=== PATIENT | female | born 1940 | race Caucasian/White ===

== ENCOUNTER 2018-09-27 17:51 | Inpatient (IN) | payer MEDICARE, MEDICAID ==
--- NOTE | 2018-09-27 18:30 | ED Physician Chart ---
ED Chief Complaint/HPI - Patient Information Date Seen:: 09/27/18 Time Seen:: 18:05 Chief Complaint:: Delusions, refusing meds History of Present Illness:: Delusions, refusing meds Allergies:: Allergies Allergy/AdvReac Type Severity Reaction Status Date / Time No Known Allergies Allergy Verified 09/27/18 18:05 Vitals:: Vital Signs - 8 hr 09/27/18 18:05 Temp 98.3 F HR 78 RR 21 BP 122/62 O2 Sat % 100 Historian:: Patient Review:: Nurse's Note Reviewed, Transfer documents Reviewed ED Review of Systems - Review of Systems General/Constitutional: No fever, No chills, No weight loss, No weakness, No diaphoresis, No edema, No loss of appetite Skin: No skin lesions, No rash, No bruising Head: No headache, No light-headedness Eyes: No loss of vision, No pain, No diplopia ENT: No earache, No nasal drainage, No sore throat, No tinnitus Neck: No neck pain, No swelling, No thyromegaly, No stiffness, No mass noted Cardio Vascular: No chest pain, No palpitations, No PND, No orthopnea, No edema Pulmonary: No SOB, No cough, No sputum, No wheezing GI: No nausea, No vomiting, No diarrhea, No pain, No melena, No hematochezia, No constipation, No hematemesis G/U: No dysuria, No frequency, No hematuria Musculoskeletal: No bone or joint pain, No back pain, No muscle pain Endocrine: No polyuria, No polydipsia Psychiatric: Prior psych history, No depression, No anxiety, No suicidal ideation, No homicidal ideation, No auditory hallucination, No visual hallucination Hematopoietic: No bruising, No lymphadenopathy Allergic/Immuno: No urticaria, No angioedema Neurological: No syncope, No focal symptoms, No weakness, No paresthesia, No headache, No seizure, No dizziness, No confusion, No vertigo ED Past Medical History - Past Medical History Obtainable: No Past Medical History: CAD, CVA/TIA Psychiatricy History: Schizophrenia, Other (anxiety; schizoaffective) Family Medical History - Family Member Mother History Unknown: Yes ED Physical Exam - Physical Examination General/Constitutional: Awake, Well-developed, well-nourished, Alert, No distress, Non-toxic appearing, Ambulatory Other Gen/Cons comments:: 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 Head: Atraumatic Eyes: Lids, conjuctiva normal, PERRL, EOMI Other Skin comments:: Large left lower lip nodular ulcerative basal cell carcinoma. ENMT: External ears, nose nl Neck: Nontender, No nuchal rigidity, No stridor Respiratory: Nl effort/Exclusion, Clear to Auscultation, No Wheeze/Rhonchi/Rales Cardio Vascular: RRR, No murmur, gallop, rubs, NL S1 S2 GI: No tenderness/rebounding/guarding, No organomegaly, No hernia, Normal BS's, Nondistended, No mass/bruits, No McBurney tenderness : No CVA tenderness Other Extremities comments:: large old left lower leg bruise. no tenderness. FROM. NV intact. Neuro/Psych: Alert/oriented, Normal sensory exam, Normal motor strength Other Neuro/Psych comments:: psychosis with delusions of being an FBI agent. ED Assessment - Assessment General Assessment: PATIENT IS MEDICALLY CLEARED FOR THE GEROPSYCH UNIT. ALL THAT SHE NEEDS TO BE CHECKED FOR IS A URINARY TRACT INFECTION. SHE REFUSED TO GIVE US A URINE IN THE ER. ED Septic Shock - . Is Septic Shock (SBP<90, OR Lactate>4 mmol\L) present?: No - <6hrs of presentation: Vital Signs: Vital Signs - 8 hr 09/27/ 18:05 Temp 98.3 F HR 78 RR 21 BP 122/62 O2 Sat % 100 ED Reassessment (Disposition) - Reassessment Reassessment Condition:: Unchanged - Diagnosis Diagnosis:: Psychosis Delusions Large left lower lip nodular ulcerative basal cell carcinoma. PATIENT IS MEDICALLY CLEARED FOR THE GEROPSYCH UNIT. ALL THAT SHE NEEDS TO BE CHECKED FOR IS A URINARY TRACT INFECTION. SHE REFUSED TO GIVE US A URINE IN THE ER - Patient Disposition Discharge/Transfer:: Acute Care w/in this hosp Admitted to:: [facility] Condition at Disposition:: Stable, Unchanged
[2018-09-27 18:48] LABS: % BASOPHILS 0.9 % (0.0-2.0); % EOSINOPHILS 2.1 % (0.0-5.0); % LYMPHOCYTES 23.9 % (20.0-50.0); % MONOCYTES 6.1 % (2.0-10.0); BASOPHILE ABSOLUTE 0.1 Th/cumm (0-0.2); EOSINOPHILE ABSOLUTE 0.1 Th/cmm (0.1-0.4); HEMATOCRIT 42.8 % (41.0-60); HEMOGLOBIN 14.2 gm/dL (12-16); LYMPHOCYTE ABSOLUTE 1.3 Th/cmm (1.5-3.0); MEAN CELL VOLUME 88.8 fl (81-100); MEAN CORPUSCULAR HEMOGLOBIN 29.3 pg (27.0-31.0); MEAN CORPUSCULAR HGB CONC 33.1 pg (28.0-36.0); MEAN PLATELET VOLUME 8.7 fl; MONOCYTE ABSOLUTE 0.3 Th/cmm (0.3-1.0); NEUTROPHILE ABSOLUTE 3.8 Th/cmm (1.8-8.0); PLATELET COUNT 212 Th/cmm (150-400); RED BLOOD COUNT 4.83 Mil/cmm (3.80-5.20); RED CELL DISTRIBUTION WIDTH 12.8 % (11.5-20.0); WHITE BLOOD COUNT 5.6 Th/cmm (4.8-10.8)
[2018-09-27 19:05] LABS: ALB/GLOB RATIO 1.6 (1.0-1.8); ALBUMIN 3.9 gm/dL (3.7-5.3); ALKALINE PHOSPHATASE 82 U/L (34-104); ANION GAP 13.1 (7.0-16.0); BILIRUBIN,TOTAL 0.9 mg/dL (0.3-1.0); BUN - UREA NITROGEN 17 mg/dL (7-25); CALCIUM SERUM 9.7 mg/dL (8.6-10.3); CARBON DIOXIDE 24.7 mEq/L (21.0-31.0); CHLORIDE 104 mEq/L (98-107); CREATININE - SERUM 0.9 mg/dL (0.6-1.2); GLUCOSE 225 mg/dL (70-105); PHOSPHOROUS 3.3 mg/dL (2.5-5.0); POTASSIUM SERUM 3.8 mEq/L (3.5-5.1); SGOT 22 U/L (13-39); SGPT/ALT 15 U/L (7-52); SODIUM SERUM 138 mEq/L (136-145); TOTAL PROTEIN,SERUM 6.4 gm/dL (6.0-8.3)
[2018-09-27 22:47] VITALS: BP 122/76
[2018-09-27] MEDS ORDERED: Maalox 30 mL Cup PO PRN (22:48)
[2018-09-27] MEDS ORDERED: Magnesium Hydroxide (MOM) 30 mL UDC PO PRN (22:48)
[2018-09-28] MEDS: Levothyroxine 0.05 Mg Tab PO SCH (07:04)
[2018-09-28 07:36] LABS: CHOLESTEROL 166 mg/dL (<200); HDL -HIGH DENSITY LIPOPROTEIN 72 mg/dL (23-92); TRIGLYCERIDES 78 mg/dL (<150)
--- NOTE | 2018-09-28 07:52 | History and Physical ---
History of Present Illness - HPI Chief Complaint: psychosis HPI: 78 y/o female who was transferred from [facility] to [facility] ER for a change in her behavior, increased delusion due to not taking her medications. Patient had routine labwork done in the ER which revealed the following ... WBC 5.6 H/h 14.2/42.8 platelets 212 Na 138 K 3.8 BUN/Cr 17/0.9 glu 225 Patient was subsequently admitted to [facility] for further evaluation and treatment. Vital Signs: Last Vital Signs Temp 97.9 F 09/28/18 06:39 Pulse 78 09/28/18 06:39 Resp 20 09/28/18 06:39 BP 112/73 09/28/18 06:39 Pulse Ox 98 09/28/18 06:39 Past Medical History Cardiovascular: Report: CAD Pulmonary: Report: No Pertinent Hx UPPER TRIMMER: Report: CVA, TIA GI: Report: No Pertinent Hx Psych: Report: Anxiety, Schizophrenia Musculoskeletal: Report: No Pertinent Hx Rheumatologic: Report: No pertinent Hx Infectious Disease: Report: No Pertinent Hx Renal/: Report: No Pertinent Hx Endocrine: Report: No Pertinent Hx Dermatology: Report: No Pertinent Hx - Past Surgical History Past Surgical History: No pertinent Hx Family Medical History - Family Member Mother History Unknown: Yes Social History Smoke: No Alcohol: None Drugs: None Lives: [facility] - Medications Home Medications: Home Medication Medication Instructions Recorded Type Aspirin EC [Ecotrin] 81 mg PO DAILY 09/27/18 History Haloperidol Decanoate [Haldol Dec] 25 mg IM [id number] 09/27/18 History Levothyroxine [Synthroid] 0.05 mg PO QDAC 09/27/18 History Mirtazapine [Remeron] 15 mg PO HS 09/27/18 History Oxcarbazepine [Trileptal] 150 mg PO BID 09/27/18 History - Allergies Allergies/Adverse Reactions: Allergies Allergy/AdvReac Type Severity Reaction Status Date / Time No Known Allergies Allergy Verified 09/27/18 18:05 Review of Systems - Review of Systems Constitutional: Report: No Significant Eyes: Report: No Significant ENT: Report: No Significant Respiratory: Report: No Significant Cardiovascular: Report: No Significant Gastrointestinal: Report: No Significant Genitourinary: Report: No Significant Musculoskeletal: Report: No Significant Skin: Report: No Significant Neurological: Report: Confusion Physical Exam - Physical Exam HEENT: Report: Ears Nose Throat within normal limits, Pharnyx within normal limits Neck: Report: Within normal limits Cardiovascular Systems: Report: +s1/s2 noted, Regular, Rate and Rhythm Respiratory: Report: Breath Sounds are within normal limits Abdomen: Report: Non-tender to palpation Back: Report: Inspection of back is within normal limits. Extremities: Report: Non-tender to palpation. Skin: Report: Color of skin is within normal limits - Lab Results All Lab Results last 24 hours: Laboratory Results - last 24 hr 09/27/18 09/27/18 09/27/18 18:35 18:35 18:35 WBC 5.6 RBC 4.83 Hgb 14.2 Hct 42.8 MCV 88.8 MCH 29.3 MCHC Differential 33.1 RDW 12.8 Plt Count 212 MPV 8.7 Neutrophils % 67.0 Lymphocytes % 23.9 Monocytes % 6.1 Eosinophils % 2.1 Basophils % 0.9 Sodium 138 Potassium 3.8 Chloride 104 Carbon Dioxide 24.7 Anion Gap 13.1 BUN 17 Creatinine 0.9 Est GFR ( Amer) TNP Est GFR (Non-Af Amer) TNP BUN/Creatinine Ratio 18.9 Glucose 225 H Calcium 9.7 Phosphorus 3.3 Magnesium 2.0 Total Bilirubin 0.9 AST 22 ALT 15 Alkaline Phosphatase 82 Total Protein 6.4 Albumin 3.9 Globulin 2.5 Albumin/Globulin Ratio 1.6 Triglycerides Cholesterol LDL Cholesterol Direct HDL Cholesterol TSH 2.93 09/27/18 18:35 WBC RBC Hgb Hct MCV MCH MCHC Differential RDW Plt Count MPV Neutrophils % Lymphocytes % Monocytes % Eosinophils % Basophils % Sodium Potassium Chloride Carbon Dioxide Anion Gap BUN Creatinine Est GFR ( Amer) Est GFR (Non-Af Amer) BUN/Creatinine Ratio Glucose Calcium Phosphorus Magnesium Total Bilirubin AST ALT Alkaline Phosphatase Total Protein Albumin Globulin Albumin/Globulin Ratio Triglycerides 78 Cholesterol 166 LDL Cholesterol Direct 85 HDL Cholesterol 72 TSH - Assessment Assessment: Current Active Problems Problem Status Onset DELUSIONAL THINKING AND POOR ORAL INTAKE Acute psychosis - Plan Plan: admit to [facility] continue current medications.
[2018-09-29] MEDS: Levothyroxine 0.05 Mg Tab PO SCH (06:31)
--- NOTE | 2018-09-29 06:49 | General Progress Note ---
Subjective - Review of Systems Service Date: 09/29/18 Subjective: Patient is awake, alert but confused. VS T97.0 P78 R20 BP 125/83 Objective - Results Result Diagrams: 09/27/18 18:35 09/27/18 18:35 Recent Labs: Laboratory Last Values WBC 5.6 Th/cmm (4.8-10.8) 09/27/18 18:35 RBC 4.83 Mil/cmm (3.80-5.20) 09/27/18 18:35 Hgb 14.2 gm/dL (12-16) 09/27/18 18:35 Hct 42.8 % (41.0-60) 09/27/18 18:35 MCV 88.8 fl (81-100) 09/27/18 18:35 MCH 29.3 pg (27.0-31.0) 09/27/18 18:35 MCHC Differential 33.1 pg (28.0-36.0) 09/27/18 18:35 RDW 12.8 % (11.5-20.0) 09/27/18 18:35 Plt Count 212 Th/cmm (150-400) 09/27/18 18:35 MPV 8.7 fl 09/27/18 18:35 Neutrophils % 67.0 % (40.0-80.0) 09/27/18 18:35 Lymphocytes % 23.9 % (20.0-50.0) 09/27/18 18:35 Monocytes % 6.1 % (2.0-10.0) 09/27/18 18:35 Eosinophils % 2.1 % (0.0-5.0) 09/27/18 18:35 Basophils % 0.9 % (0.0-2.0) 09/27/18 18:35 Sodium 138 mEq/L (136-145) 09/27/18 18:35 Potassium 3.8 mEq/L (3.5-5.1) 09/27/18 18:35 Chloride 104 mEq/L (98-107) 09/27/18 18:35 Carbon Dioxide 24.7 mEq/L (21.0-31.0) 09/27/18 18:35 Anion Gap 13.1 (7.0-16.0) 09/27/18 18:35 BUN 17 mg/dL (7-25) 09/27/18 18:35 Creatinine 0.9 mg/dL (0.6-1.2) 09/27/18 18:35 Est GFR ( Amer) TNP 09/27/18 18:35 Est GFR (Non-Af Amer) TNP 09/27/18 18:35 BUN/Creatinine Ratio 18.9 09/27/18 18:35 Glucose 225 mg/dL (70-105) H 09/27/18 18:35 Calcium 9.7 mg/dL (8.6-10.3) 09/27/18 18:35 Phosphorus 3.3 mg/dL (2.5-5.0) 09/27/18 18:35 Magnesium 2.0 mg/dL (1.9-2.7) 09/27/18 18:35 Total Bilirubin 0.9 mg/dL (0.3-1.0) 09/27/18 18:35 AST 22 U/L (13-39) 09/27/18 18:35 ALT 15 U/L (7-52) 09/27/18 18:35 Alkaline Phosphatase 82 U/L (34-104) 09/27/18 18:35 Total Protein 6.4 gm/dL (6.0-8.3) 09/27/18 18:35 Albumin 3.9 gm/dL (3.7-5.3) 09/27/18 18:35 Globulin 2.5 gm/dL 09/27/18 18:35 Albumin/Globulin Ratio 1.6 (1.0-1.8) 09/27/18 18:35 Triglycerides 78 mg/dL (<150) 09/27/18 18:35 Cholesterol 166 mg/dL (<200) 09/27/18 18:35 LDL Cholesterol Direct 85 mg/dL (75-193) 09/27/18 18:35 HDL Cholesterol 72 mg/dL (23-92) 09/27/18 18:35 TSH 2.93 uIU/ml (0.34-5.60) 09/27/18 18:35 - Physical Exam Vitals and I&O: Vital Signs Temp 97.0 F 09/29/18 06:24 Pulse 78 09/29/18 06:24 Resp 20 09/29/18 06:24 BP 125/83 09/29/18 06:24 Pulse Ox 95 12/25/18 06:24 Intake & Output 09/28/18 09/28/18 09/29/18 06:59 18:59 06:59 Intake Total 0 1200 240 Balance 0 1200 240 Weight (lbs) 46.266 kg Intake: Oral 0 1200 240 Other: # Voids 3 3 2 # Bowel Movements 0 1 Weight Source Bedscale Active Medications: Current Medications Acetaminophen (Tylenol) 650 mg PO Q4HR PRN PRN Reason: Mild Pain / Temp above 100 Stop: 11/26/18 22:47 Al Hydrox/Mg Hydrox/Simethicone (Maalox) 30 ml PO Q4HR PRN PRN Reason: GI DISTRESS Stop: 11/26/18 22:47 Aspirin (Ecotrin) 81 mg PO DAILY [facility] Stop: 11/27/18 08:59 Last Admin: 09/28/18 09:32 Dose: Not Given Haloperidol Decanoate (Haldol Dec) 25 mg IM [id number] [facility]; Protocol Stop: 11/28/18 08:59 Levothyroxine Sodium (Synthroid) 0.05 mg PO QDAC [facility] Stop: 11/27/18 07:29 Last Admin: 09/29/18 06:31 Dose: Not Given Lorazepam (Ativan) 0.5 mg PO Q4HR PRN; Protocol PRN Reason: Anxiety Stop: 10/27/18 22:47 Magnesium Hydroxide (Milk Of Magnesia) 30 ml PO HS PRN PRN Reason: Constipation Mirtazapine (Remeron) 15 mg PO HS [facility]; Protocol Stop: 11/27/18 20:59 Last Admin: 09/28/18 21:04 Dose: Not Given Oxcarbazepine (Trileptal) 150 mg PO BID [facility]; Protocol Stop: 11/27/18 08:59 Last Admin: 09/28/18 16:26 Dose: Not Given General: Alert, No acute distress HEENT: Atraumatic, PERRLA, EOMI Neck: Supple, no JVD Cardiovascular: Regular rate, Normal S1, Normal S2 Lungs: Clear to auscultation Abdomen: Bowel sounds Extremities: no Clubbing, no Cyanosis, no Edema Neurological: Normal gait Assessment/Plan - Problem List Patient Problems: All Active Problems DELUSIONAL THINKING AND POOR ORAL INTAKE (Acute) - Assessment Assessment: Current Active Problems Problem Status Onset DELUSIONAL THINKING AND POOR ORAL INTAKE Acute psychosis - Plan Plan: admit to [facility] continue current medications. Nutritional Asmnt/Malnutr-PDOC - Dietary Evaluation Malnutrition Findings (Please click <Entered> for more info): Nutritional Asmnt/Malnutrition Start: 09/28/18 15: 25 Text: Status: Complete Freq: Protocol: Document 09/28/18 15:25 LCHENG (Rec: 09/28/18 15:36 [email or web address]) Nutritional Asmnt/Malnutrition Patient General Information Nutritional Screening High Risk Consult Diagnosis psychosis Pertinent Medical Hx/Surgical Hx CAD, CVA/TIA Subjective Information Consult received for elevated glucose at admission. Glucose 225 noted. Per nurse note, pt has been refusing meals for 2 days before admitted. Per QUALITY ANALYST/TECHNICAL WRITER, pt ate well, 75% of meals. Current Diet Order/ Nutrition Support regular Pertinent Medications synthroid, remeron Pertinent Labs 09/27 glucose 225 Nutritional Hx/Data Height 1.68 m Height (Calculated Centimeters) 167.6 Current Weight (lbs) 46.266 kg Weight (Calculated Kilograms) 46.3 Weight (Calculated Grams) 22308.4 [place] Body Weight 130 Body Mass Index (BMI) 16.5 Weight Status Underweight GI Symptoms GI Symptoms None Last BM none noted Difficult in: None Skin Integrity/Comment: intact Current %PO Good (75-100%) Estimated Nutritional Goals BEE in Kcals: Using Current wt Calories/Kcals/Kg 30-35 Kcals Calculated 0847-9323 Protein: Using Current wt Protein g/k.2 Protein Calculated 55 Fluid: ml 1380-1610ml (1ml/kcal) Nutritional Problem 1. Problem Problem altered nutrition related labs Etiology hyperglycemia Signs/Symptoms: glucose 225 Intervention/Recommendation Comments 1. Continue with regular diet as ordered. If glucose continue elevated, consider adding CCHO 60gm diet restriction 2. Monitor PO intake, wt, labs and skin integrity 3. F/U as high risk in 2-3 days Expected Outcomes/Goals Expected Outcomes/Goals 1. PO intake to meet at least 75% of nutritional needs. 2. Wt stability, skin to remain intact, labs to approach WNL.
--- NOTE | 2018-09-29 18:05 | Psychiatric Evaluation ---
DATE OF SERVICE: 09/28/[address] Upton covering for Dr. Borrego and Dr. Fernández. REASON FOR HOSPITALIZATION: Psychotic and refusing medication. HISTORY OF PRESENT ILLNESS: She is a 78-year-old female brought in here for delusions, psychotic, and aggressive behavior. 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 She derails, is hyperverbal, disorganized. PAST PSYCHIATRIC HISTORY: Delusion and schizophrenia. ALLERGIES TO MEDICATIONS: NKDA. Vitals are stable. Medically cleared from the ER. FAMILY PSYCHIATRIC HISTORY: Noncontributory. SOCIAL HISTORY: Denies any illicit drug use. Denies any abuse. LEGAL HISTORY: Denied. MEDICATIONS: Include aspirin, haloperidol 25 mg p.o. q. 2 weeks, mirtazapine 15 mg, also Trileptal at 150 mg p.o. b.i.d., and levothyroxine. MEDICAL PROBLEMS: Include hypothyroidism, status post UTI. MENTAL STATUS EXAMINATION: She is in her room, delusional, disorganized, believing there is a conspiracy with the government and the FBI agent and also she is royalty of the [employer], responding. ASSESSMENT AND PLAN: A 78-year-old female who presents psychotic, disorganized, and intermittently compliant with medication. She is currently on Haldol Deaconate. Recommend to continue obtaining more collateral baseline information. In the meantime, we will continue with the Haldol Decanoate and we will add a low dose of Seroquel to target the patient's ongoing psychotic symptoms. ESTIMATED LENGTH OF STAY: Between 5-10 days. DISCHARGE CRITERIA: Demonstrate euthymic mood, no suicidal or homicidal ideation, and good safe disposition plan with good psychiatric followup. PRIMARY DIAGNOSIS: Schizophrenia. SECONDARY DIAGNOSIS: None. MEDICAL DIAGNOSES: Hypothyroidism and urinary tract infection. JOB# [id number]
--- NOTE | 2018-09-29 23:18 | Progress Notes ---
DATE: 09/29/2018 SUBJECTIVE: Staff was spoken to. The patient is interviewed. Mood is noted to be depressed. Affect is constricted. Insight and judgment noted to be still impaired. Impulse control is very poor. Coping skills are noted to be poor. The patient is grossly psychotic. The patient has to be given a dose of the Haldol Decanoate on 09/29/2018. The patient has been impulsive and has been currently on oxcarbazepine and mirtazapine. No side effects to the medications are noted. The patient's sleep and appetite at this time are noted to be very poor. ASSESSMENT: The patient is still psychotic and impulsive. PLAN: To continue the patient with the supportive therapy, encouraged the patient to verbalize the concerns rather than to act out. JOB# [id number]
[2018-09-30] MEDS: Levothyroxine 0.05 Mg Tab PO SCH (06:59)
--- NOTE | 2018-09-30 07:10 | General Progress Note ---
Subjective - Review of Systems Service Date: 09/30/18 Subjective: Patient is awake, alert but confused. VS T97.9 P79 R18 BP 138/69 Objective - Results Result Diagrams: 09/27/18 18:35 09/27/18 18:35 Recent Labs: Laboratory Last Values WBC 5.6 Th/cmm (4.8-10.8) 09/27/18 18:35 RBC 4.83 Mil/cmm (3.80-5.20) 09/27/18 18:35 Hgb 14.2 gm/dL (12-16) 09/27/18 18:35 Hct 42.8 % (41.0-60) 09/27/18 18:35 MCV 88.8 fl (81-100) 09/27/18 18:35 MCH 29.3 pg (27.0-31.0) 09/27/18 18:35 MCHC Differential 33.1 pg (28.0-36.0) 09/27/18 18:35 RDW 12.8 % (11.5-20.0) 09/27/18 18:35 Plt Count 212 Th/cmm (150-400) 09/27/18 18:35 MPV 8.7 fl 09/27/18 18:35 Neutrophils % 67.0 % (40.0-80.0) 09/27/18 18:35 Lymphocytes % 23.9 % (20.0-50.0) 09/27/18 18:35 Monocytes % 6.1 % (2.0-10.0) 09/27/18 18:35 Eosinophils % 2.1 % (0.0-5.0) 09/27/18 18:35 Basophils % 0.9 % (0.0-2.0) 09/27/18 18:35 Sodium 138 mEq/L (136-145) 09/27/18 18:35 Potassium 3.8 mEq/L (3.5-5.1) 09/27/18 18:35 Chloride 104 mEq/L (98-107) 09/27/18 18:35 Carbon Dioxide 24.7 mEq/L (21.0-31.0) 09/27/18 18:35 Anion Gap 13.1 (7.0-16.0) 09/27/18 18:35 BUN 17 mg/dL (7-25) 09/27/18 18:35 Creatinine 0.9 mg/dL (0.6-1.2) 09/27/18 18:35 Est GFR ( Amer) TNP 09/27/18 18:35 Est GFR (Non-Af Amer) TNP 09/27/18 18:35 BUN/Creatinine Ratio 18.9 09/27/18 18:35 Glucose 225 mg/dL (70-105) H 09/27/18 18:35 Calcium 9.7 mg/dL (8.6-10.3) 09/27/18 18:35 Phosphorus 3.3 mg/dL (2.5-5.0) 09/27/18 18:35 Magnesium 2.0 mg/dL (1.9-2.7) 09/27/18 18:35 Total Bilirubin 0.9 mg/dL (0.3-1.0) 09/27/18 18:35 AST 22 U/L (13-39) 09/27/18 18:35 ALT 15 U/L (7-52) 09/27/18 18:35 Alkaline Phosphatase 82 U/L (34-104) 09/27/18 18:35 Total Protein 6.4 gm/dL (6.0-8.3) 09/27/18 18:35 Albumin 3.9 gm/dL (3.7-5.3) 09/27/18 18:35 Globulin 2.5 gm/dL 09/27/18 18:35 Albumin/Globulin Ratio 1.6 (1.0-1.8) 09/27/18 18:35 Triglycerides 78 mg/dL (<150) 09/27/18 18:35 Cholesterol 166 mg/dL (<200) 09/27/18 18:35 LDL Cholesterol Direct 85 mg/dL (75-193) 09/27/18 18:35 HDL Cholesterol 72 mg/dL (23-92) 09/27/18 18:35 TSH 2.93 uIU/ml (0.34-5.60) 09/27/18 18:35 - Physical Exam Vitals and I&O: Vital Signs Temp 97.9 F 09/30/18 05:19 Pulse 79 09/30/18 05:19 Resp 18 09/30/18 05:19 BP 138/69 09/30/18 05:19 Pulse Ox 98 12/26/18 05:19 Intake & Output 09/29/18 09/30/18 09/30/18 18:59 06:59 18:59 Intake Total 480 Balance 480 Intake: Oral 480 Other: # Voids 2 2 # Bowel Movements 1 Active Medications: Current Medications Acetaminophen (Tylenol) 650 mg PO Q4HR PRN PRN Reason: Mild Pain / Temp above 100 Stop: 11/26/18 22:47 Al Hydrox/Mg Hydrox/Simethicone (Maalox) 30 ml PO Q4HR PRN PRN Reason: GI DISTRESS Stop: 11/26/18 22:47 Aspirin (Ecotrin) 81 mg PO DAILY [facility] Stop: 11/27/18 08:59 Last Admin: 09/29/18 08:36 Dose: 81 mg Haloperidol Decanoate (Haldol Dec) 25 mg IM [id number] [facility]; Protocol Stop: 11/28/18 08:59 Last Admin: 09/29/18 08:36 Dose: 25 mg Levothyroxine Sodium (Synthroid) 0.05 mg PO QDAC [facility] Stop: 11/27/18 07:29 Last Admin: 09/30/18 06:59 Dose: Not Given Lorazepam (Ativan) 0.5 mg PO Q4HR PRN; Protocol PRN Reason: Anxiety Stop: 10/27/18 22:47 Magnesium Hydroxide (Milk Of Magnesia) 30 ml PO HS PRN PRN Reason: Constipation Mirtazapine (Remeron) 15 mg PO HS [facility]; Protocol Stop: 11/27/18 20:59 Last Admin: 09/29/18 20:41 Dose: Not Given Oxcarbazepine (Trileptal) 150 mg PO BID [facility]; Protocol Stop: 11/27/18 08:59 Last Admin: 09/29/18 16:35 Dose: 150 mg General: Alert, No acute distress HEENT: Atraumatic, PERRLA, EOMI Neck: Supple, no JVD Cardiovascular: Regular rate, Normal S1, Normal S2 Lungs: Clear to auscultation Abdomen: Bowel sounds Extremities: no Clubbing, no Cyanosis, no Edema Neurological: Normal gait Assessment/Plan - Problem List Patient Problems: All Active Problems DELUSIONAL THINKING AND POOR ORAL INTAKE (Acute) - Assessment Assessment: Current Active Problems Problem Status Onset DELUSIONAL THINKING AND POOR ORAL INTAKE Acute psychosis - Plan Plan: admit to [facility] continue current medications. Nutritional Asmnt/Malnutr-PDOC - Dietary Evaluation Malnutrition Findings (Please click <Entered> for more info): Nutritional Asmnt/Malnutrition Start: 09/28/18 15: 25 Text: Status: Complete Freq: Protocol: Document 09/28/18 15:25 LCHENG (Rec: 09/28/18 15:36 [email or web address]) Nutritional Asmnt/Malnutrition Patient General Information Nutritional Screening High Risk Consult Diagnosis psychosis Pertinent Medical Hx/Surgical Hx CAD, CVA/TIA Subjective Information Consult received for elevated glucose at admission. Glucose 225 noted. Per nurse note, pt has been refusing meals for 2 days before admitted. Per VERIFYING MACHINE OPERATOR, pt ate well, 75% of meals. Current Diet Order/ Nutrition Support regular Pertinent Medications synthroid, remeron Pertinent Labs 09/27 glucose 225 Nutritional Hx/Data Height 1.68 m Height (Calculated Centimeters) 167.6 Current Weight (lbs) 46.266 kg Weight (Calculated Kilograms) 46.3 Weight (Calculated Grams) 03018.4 [place] Body Weight 130 Body Mass Index (BMI) 16.5 Weight Status Underweight GI Symptoms GI Symptoms None Last BM none noted Difficult in: None Skin Integrity/Comment: intact Current %PO Good (75-100%) Estimated Nutritional Goals BEE in Kcals: Using Current wt Calories/Kcals/Kg 30-35 Kcals Calculated 1304-6796 Protein: Using Current wt Protein g/k.2 Protein Calculated 55 Fluid: ml 1380-1610ml (1ml/kcal) Nutritional Problem 1. Problem Problem altered nutrition related labs Etiology hyperglycemia Signs/Symptoms: glucose 225 Intervention/Recommendation Comments 1. Continue with regular diet as ordered. If glucose continue elevated, consider adding CCHO 60gm diet restriction 2. Monitor PO intake, wt, labs and skin integrity 3. F/U as high risk in 2-3 days Expected Outcomes/Goals Expected Outcomes/Goals 1. PO intake to meet at least 75% of nutritional needs. 2. Wt stability, skin to remain intact, labs to approach WNL.
--- NOTE | 2018-09-30 21:22 | Progress Notes ---
DATE: 09/30/2018 SUBJECTIVE: Staff was spoken to. The patient is interviewed. Chart is reviewed. The patient continues to be irritable and angry. The patient continues to be very paranoid. The patient is stating that we are trying to poison her. The patient has been reluctant to comply with the medications. ASSESSMENT: The patient is still grossly psychotic. PLAN: To continue the patient with the supportive therapy, encouraged the patient to verbalize the concerns rather than to act out. Currently, the patient is on ____ twice a day with Trileptal and mirtazapine is given at 50 mg at bedtime and the Haldol is being given at 25 mg IM every 2 weeks. JOB# [id number]
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
[2018-10-01] MEDS: Levothyroxine 0.05 Mg Tab PO SCH (06:50)
--- NOTE | 2018-10-01 07:14 | General Progress Note ---
Subjective - Review of Systems Service Date: 10/01/18 Subjective: Patient is awake, alert but confused. VS T97.2 P71 R20 BP 146/55 Objective - Results Result Diagrams: 09/27/18 18:35 09/27/18 18:35 Recent Labs: Laboratory Last Values WBC 5.6 Th/cmm (4.8-10.8) 09/27/18 18:35 RBC 4.83 Mil/cmm (3.80-5.20) 09/27/18 18:35 Hgb 14.2 gm/dL (12-16) 09/27/18 18:35 Hct 42.8 % (41.0-60) 09/27/18 18:35 MCV 88.8 fl (81-100) 09/27/18 18:35 MCH 29.3 pg (27.0-31.0) 09/27/18 18:35 MCHC Differential 33.1 pg (28.0-36.0) 09/27/18 18:35 RDW 12.8 % (11.5-20.0) 09/27/18 18:35 Plt Count 212 Th/cmm (150-400) 09/27/18 18:35 MPV 8.7 fl 09/27/18 18:35 Neutrophils % 67.0 % (40.0-80.0) 09/27/18 18:35 Lymphocytes % 23.9 % (20.0-50.0) 09/27/18 18:35 Monocytes % 6.1 % (2.0-10.0) 09/27/18 18:35 Eosinophils % 2.1 % (0.0-5.0) 09/27/18 18:35 Basophils % 0.9 % (0.0-2.0) 09/27/18 18:35 Sodium 138 mEq/L (136-145) 09/27/18 18:35 Potassium 3.8 mEq/L (3.5-5.1) 09/27/18 18:35 Chloride 104 mEq/L (98-107) 09/27/18 18:35 Carbon Dioxide 24.7 mEq/L (21.0-31.0) 09/27/18 18:35 Anion Gap 13.1 (7.0-16.0) 09/27/18 18:35 BUN 17 mg/dL (7-25) 09/27/18 18:35 Creatinine 0.9 mg/dL (0.6-1.2) 09/27/18 18:35 Est GFR ( Amer) TNP 09/27/18 18:35 Est GFR (Non-Af Amer) TNP 09/27/18 18:35 BUN/Creatinine Ratio 18.9 09/27/18 18:35 Glucose 225 mg/dL (70-105) H 09/27/18 18:35 Calcium 9.7 mg/dL (8.6-10.3) 09/27/18 18:35 Phosphorus 3.3 mg/dL (2.5-5.0) 09/27/18 18:35 Magnesium 2.0 mg/dL (1.9-2.7) 09/27/18 18:35 Total Bilirubin 0.9 mg/dL (0.3-1.0) 09/27/18 18:35 AST 22 U/L (13-39) 09/27/18 18:35 ALT 15 U/L (7-52) 09/27/18 18:35 Alkaline Phosphatase 82 U/L (34-104) 09/27/18 18:35 Total Protein 6.4 gm/dL (6.0-8.3) 09/27/18 18:35 Albumin 3.9 gm/dL (3.7-5.3) 09/27/18 18:35 Globulin 2.5 gm/dL 09/27/18 18:35 Albumin/Globulin Ratio 1.6 (1.0-1.8) 09/27/18 18:35 Triglycerides 78 mg/dL (<150) 09/27/18 18:35 Cholesterol 166 mg/dL (<200) 09/27/18 18:35 LDL Cholesterol Direct 85 mg/dL (75-193) 09/27/18 18:35 HDL Cholesterol 72 mg/dL (23-92) 09/27/18 18:35 TSH 2.93 uIU/ml (0.34-5.60) 09/27/18 18:35 - Physical Exam Vitals and I&O: Vital Signs Temp 97.2 F 09/30/18 20:00 Pulse 71 09/30/18 20:00 Resp 20 09/30/18 20:00 BP 146/55 09/30/18 20:00 Pulse Ox 97 12/26/18 20:00 Intake & Output 09/30/18 10/01/18 10/01/18 18:59 06:59 18:59 Intake Total 1200 120 Balance 1200 120 Intake: Oral 1200 120 Other: # Voids 2 # Bowel Movements 1 Active Medications: Current Medications Acetaminophen (Tylenol) 650 mg PO Q4HR PRN PRN Reason: Mild Pain / Temp above 100 Stop: 11/26/18 22:47 Al Hydrox/Mg Hydrox/Simethicone (Maalox) 30 ml PO Q4HR PRN PRN Reason: GI DISTRESS Stop: 11/26/18 22:47 Aspirin (Ecotrin) 81 mg PO DAILY [facility] Stop: 11/27/18 08:59 Last Admin: 09/30/18 09:04 Dose: 81 mg Haloperidol Decanoate (Haldol Dec) 25 mg IM [id number] [facility]; Protocol Stop: 11/28/18 08:59 Last Admin: 09/29/18 08:36 Dose: 25 mg Levothyroxine Sodium (Synthroid) 0.05 mg PO QDAC [facility] Stop: 11/27/18 07:29 Last Admin: 10/01/18 06:50 Dose: Not Given Lorazepam (Ativan) 0.5 mg PO Q4HR PRN; Protocol PRN Reason: Anxiety Stop: 10/27/18 22:47 Magnesium Hydroxide (Milk Of Magnesia) 30 ml PO HS PRN PRN Reason: Constipation Mirtazapine (Remeron) 15 mg PO HS [facility]; Protocol Stop: 11/27/18 20:59 Last Admin: 09/30/18 21:00 Dose: Not Given Oxcarbazepine (Trileptal) 150 mg PO BID [facility]; Protocol Stop: 11/27/18 08:59 Last Admin: 09/30/18 16:23 Dose: Not Given General: Alert, No acute distress HEENT: Atraumatic, PERRLA, EOMI Neck: Supple, no JVD Cardiovascular: Regular rate, Normal S1, Normal S2 Lungs: Clear to auscultation Abdomen: Bowel sounds Extremities: no Clubbing, no Cyanosis, no Edema Neurological: Normal gait Assessment/Plan - Problem List Patient Problems: All Active Problems DELUSIONAL THINKING AND POOR ORAL INTAKE (Acute) - Assessment Assessment: Current Active Problems Problem Status Onset DELUSIONAL THINKING AND POOR ORAL INTAKE Acute psychosis - [facility]. Nutritional Asmnt/Malnutr-PDOC - Dietary Evaluation Malnutrition Findings (Please click <Entered> for more info): Nutritional Asmnt/Malnutrition Start: 09/28/18 15: 25 Text: Status: Complete Freq: Protocol: Document 09/28/18 15:25 LCHENG (Rec: 09/28/18 15:36 [email or web address]) Nutritional Asmnt/Malnutrition Patient General Information Nutritional Screening High Risk Consult Diagnosis psychosis Pertinent Medical Hx/Surgical Hx CAD, CVA/TIA Subjective Information Consult received for elevated glucose at admission. Glucose 225 noted. Per nurse note, pt has been refusing meals for 2 days before admitted. Per TEAMSITE DEVELOPER, pt ate well, 75% of meals. Current Diet Order/ Nutrition Support regular Pertinent Medications synthroid, remeron Pertinent Labs 09/27 glucose 225 Nutritional Hx/Data Height 1.68 m Height (Calculated Centimeters) 167.6 Current Weight (lbs) 46.266 kg Weight (Calculated Kilograms) 46.3 Weight (Calculated Grams) 84710.4 [place] Body Weight 130 Body Mass Index (BMI) 16.5 Weight Status Underweight GI Symptoms GI Symptoms None Last BM none noted Difficult in: None Skin Integrity/Comment: intact Current %PO Good (75-100%) Estimated Nutritional Goals BEE in Kcals: Using Current wt Calories/Kcals/Kg 30-35 Kcals Calculated 0939-4056 Protein: Using Current wt Protein g/k.2 Protein Calculated 55 Fluid: ml 1380-1610ml (1ml/kcal) Nutritional Problem 1. Problem Problem altered nutrition related labs Etiology hyperglycemia Signs/Symptoms: glucose 225 Intervention/Recommendation Comments 1. Continue with regular diet as ordered. If glucose continue elevated, consider adding CCHO 60gm diet restriction 2. Monitor PO intake, wt, labs and skin integrity 3. F/U as high risk in 2-3 days Expected Outcomes/Goals Expected Outcomes/Goals 1. PO intake to meet at least 75% of nutritional needs. 2. Wt stability, skin to remain intact, labs to approach WNL.
--- NOTE | 2018-10-01 22:56 | Progress Notes ---
DATE: 10/01/2018 PSYCHIATRIC PROGRESS NOTE SUBJECTIVE: Staff was spoken to. The patient is interviewed. Mood is noted to be irritable. Affect is constricted. The patient is pacing most of the time on the unit. The patient has no insight into her illness. Coping skills are noted to be extremely poor. The patient is very paranoid with ____ difficulty, the patient has been able to accept the medication this afternoon. ASSESSMENT: The patient is still grossly psychotic. PLAN: To continue the patient with the supportive therapy and followup. JOB# [id number]
[2018-10-02] MEDS: Levothyroxine 0.05 Mg Tab PO SCH ×2 (06:56→07:01)
--- NOTE | 2018-10-02 07:25 | General Progress Note ---
Subjective - Review of Systems Service Date: 10/02/18 Subjective: Patient is awake, alert but confused. VS T97.9 P69 R18 BP 134/62 Objective - Results Result Diagrams: 09/27/18 18:35 09/27/18 18:35 Recent Labs: Laboratory Last Values WBC 5.6 Th/cmm (4.8-10.8) 09/27/18 18:35 RBC 4.83 Mil/cmm (3.80-5.20) 09/27/18 18:35 Hgb 14.2 gm/dL (12-16) 09/27/18 18:35 Hct 42.8 % (41.0-60) 09/27/18 18:35 MCV 88.8 fl (81-100) 09/27/18 18:35 MCH 29.3 pg (27.0-31.0) 09/27/18 18:35 MCHC Differential 33.1 pg (28.0-36.0) 09/27/18 18:35 RDW 12.8 % (11.5-20.0) 09/27/18 18:35 Plt Count 212 Th/cmm (150-400) 09/27/18 18:35 MPV 8.7 fl 09/27/18 18:35 Neutrophils % 67.0 % (40.0-80.0) 09/27/18 18:35 Lymphocytes % 23.9 % (20.0-50.0) 09/27/18 18:35 Monocytes % 6.1 % (2.0-10.0) 09/27/18 18:35 Eosinophils % 2.1 % (0.0-5.0) 09/27/18 18:35 Basophils % 0.9 % (0.0-2.0) 09/27/18 18:35 Sodium 138 mEq/L (136-145) 09/27/18 18:35 Potassium 3.8 mEq/L (3.5-5.1) 09/27/18 18:35 Chloride 104 mEq/L (98-107) 09/27/18 18:35 Carbon Dioxide 24.7 mEq/L (21.0-31.0) 09/27/18 18:35 Anion Gap 13.1 (7.0-16.0) 09/27/18 18:35 BUN 17 mg/dL (7-25) 09/27/18 18:35 Creatinine 0.9 mg/dL (0.6-1.2) 09/27/18 18:35 Est GFR ( Amer) TNP 09/27/18 18:35 Est GFR (Non-Af Amer) TNP 09/27/18 18:35 BUN/Creatinine Ratio 18.9 09/27/18 18:35 Glucose 225 mg/dL (70-105) H 09/27/18 18:35 Calcium 9.7 mg/dL (8.6-10.3) 09/27/18 18:35 Phosphorus 3.3 mg/dL (2.5-5.0) 09/27/18 18:35 Magnesium 2.0 mg/dL (1.9-2.7) 09/27/18 18:35 Total Bilirubin 0.9 mg/dL (0.3-1.0) 09/27/18 18:35 AST 22 U/L (13-39) 09/27/18 18:35 ALT 15 U/L (7-52) 09/27/18 18:35 Alkaline Phosphatase 82 U/L (34-104) 09/27/18 18:35 Total Protein 6.4 gm/dL (6.0-8.3) 09/27/18 18:35 Albumin 3.9 gm/dL (3.7-5.3) 09/27/18 18:35 Globulin 2.5 gm/dL 09/27/18 18:35 Albumin/Globulin Ratio 1.6 (1.0-1.8) 09/27/18 18:35 Triglycerides 78 mg/dL (<150) 09/27/18 18:35 Cholesterol 166 mg/dL (<200) 09/27/18 18:35 LDL Cholesterol Direct 85 mg/dL (75-193) 09/27/18 18:35 HDL Cholesterol 72 mg/dL (23-92) 09/27/18 18:35 TSH 2.93 uIU/ml (0.34-5.60) 09/27/18 18:35 - Physical Exam Vitals and I&O: Vital Signs Temp 0 F 10/02/18 06:34 Pulse 69 10/01/18 20:38 Resp 18 10/01/18 20:38 BP 134/62 12/27/18 20:38 Pulse Ox 97 10/01/18 20:38 Intake & Output 10/01/18 10/02/18 10/02/18 18:59 06:59 18:59 Intake Total 1400 240 Output Total 1 Balance 1400 239 Weight (lbs) 46.266 kg Intake: Oral 1400 240 Output: Urine/Stool Mix 1 Other: # Voids 3 3 # Bowel Movements 0 0 Weight Source Bedscale Active Medications: Current Medications Acetaminophen (Tylenol) 650 mg PO Q4HR PRN PRN Reason: Mild Pain / Temp above 100 Stop: 11/26/18 22:47 Al Hydrox/Mg Hydrox/Simethicone (Maalox) 30 ml PO Q4HR PRN PRN Reason: GI DISTRESS Stop: 11/26/18 22:47 Aspirin (Ecotrin) 81 mg PO DAILY [facility] Stop: 11/27/18 08:59 Last Admin: 10/01/18 09:45 Dose: 81 mg Haloperidol Decanoate (Haldol Dec) 25 mg IM [id number] [facility]; Protocol Stop: 11/28/18 08:59 Last Admin: 09/29/18 08:36 Dose: 25 mg Levothyroxine Sodium (Synthroid) 0.05 mg PO QDAC [facility] Stop: 11/27/18 07:29 Last Admin: 10/02/18 07:01 Dose: Not Given Lorazepam (Ativan) 0.5 mg PO Q4HR PRN; Protocol PRN Reason: Anxiety Stop: 10/27/18 22:47 Magnesium Hydroxide (Milk Of Magnesia) 30 ml PO HS PRN PRN Reason: Constipation Mirtazapine (Remeron) 15 mg PO HS [facility]; Protocol Stop: 11/27/18 20:59 Last Admin: 10/01/18 21:13 Dose: Not Given Oxcarbazepine (Trileptal) 150 mg PO BID [facility]; Protocol Stop: 11/27/18 08:59 Last Admin: 10/01/18 17:08 Dose: Not Given General: Alert, No acute distress HEENT: Atraumatic, PERRLA, EOMI Neck: Supple, no JVD Cardiovascular: Regular rate, Normal S1, Normal S2 Lungs: Clear to auscultation Abdomen: Bowel sounds Extremities: no Clubbing, no Cyanosis, no Edema Neurological: Normal gait Assessment/Plan - Problem List Patient Problems: All Active Problems DELUSIONAL THINKING AND POOR ORAL INTAKE (Acute) - Assessment Assessment: Current Active Problems Problem Status Onset DELUSIONAL THINKING AND POOR ORAL INTAKE Acute psychosis - Plan [facility]. Nutritional Asmnt/Malnutr-PDOC - Dietary Evaluation Malnutrition Findings (Please click <Entered> for more info): Nutritional Asmnt/Malnutrition Start: 09/28/18 15: 25 Text: Status: Complete Freq: Protocol: Document 09/28/18 15:25 LCHENG (Rec: 09/28/18 15:36 [email or web address] [email or web address]) Nutritional Asmnt/Malnutrition Patient General Information Nutritional Screening High Risk Consult Diagnosis psychosis Pertinent Medical Hx/Surgical Hx CAD, CVA/TIA Subjective Information Consult received for elevated glucose at admission. Glucose 225 noted. Per nurse note, pt has been refusing meals for 2 days before admitted. Per SERVICE STATION ATTENDANT, pt ate well, 75% of meals. Current Diet Order/ Nutrition Support regular Pertinent Medications synthroid, remeron Pertinent Labs 09/27 glucose 225 Nutritional Hx/Data Height 1.68 m Height (Calculated Centimeters) 167.6 Current Weight (lbs) 46.266 kg Weight (Calculated Kilograms) 46.3 Weight (Calculated Grams) 61149.4 [place] Body Weight 130 Body Mass Index (BMI) 16.5 Weight Status Underweight GI Symptoms GI Symptoms None Last BM none noted Difficult in: None Skin Integrity/Comment: intact Current %PO Good (75-100%) Estimated Nutritional Goals BEE in Kcals: Using Current wt Calories/Kcals/Kg 30-35 Kcals Calculated 4231-4584 Protein: Using Current wt Protein g/k.2 Protein Calculated 55 Fluid: ml 1380-1610ml (1ml/kcal) Nutritional Problem 1. Problem Problem altered nutrition related labs Etiology hyperglycemia Signs/Symptoms: glucose 225 Intervention/Recommendation Comments 1. Continue with regular diet as ordered. If glucose continue elevated, consider adding CCHO 60gm diet restriction 2. Monitor PO intake, wt, labs and skin integrity 3. F/U as high risk in 2-3 days Expected Outcomes/Goals Expected Outcomes/Goals 1. PO intake to meet at least 75% of nutritional needs. 2. Wt stability, skin to remain intact, labs to approach WNL.
--- NOTE | 2018-10-02 09:28 | Progress Notes ---
DATE: 10/02/2018 PSYCHIATRIC PROGRESS NOTE SUBJECTIVE: Staff was spoken to. The patient is interviewed. Mood is noted to be irritable. Affect is constricted. The patient is going on a tangent and is not able to make any sense. Coping skills at this time are noted to be very poor. Insight and judgment are also noted to be very much impaired. The patient has been pacing most of the time and is stating that this is [employer] thing and she works for the [employer]. The patient is going on a tangent and is not able to contract for her safety. The patient is currently on a mood stabilizer as well as an antipsychotic medication and has been able to tolerate. PLAN: To continue the patient with supportive therapy. I encouraged the patient to verbalize the concerns rather than to act out. JOB# [id number]
--- NOTE | 2018-10-03 05:53 | General Progress Note ---
Subjective - Review of Systems Service Date: 10/03/18 Subjective: Patient is awake, alert but confused. VS T97.6 P79 R20 BP 105/57 Objective - Results Result Diagrams: 09/27/18 18:35 09/27/18 18:35 Recent Labs: Laboratory Last Values WBC 5.6 Th/cmm (4.8-10.8) 09/27/18 18:35 RBC 4.83 Mil/cmm (3.80-5.20) 09/27/18 18:35 Hgb 14.2 gm/dL (12-16) 09/27/18 18:35 Hct 42.8 % (41.0-60) 09/27/18 18:35 MCV 88.8 fl (81-100) 09/27/18 18:35 MCH 29.3 pg (27.0-31.0) 09/27/18 18:35 MCHC Differential 33.1 pg (28.0-36.0) 09/27/18 18:35 RDW 12.8 % (11.5-20.0) 09/27/18 18:35 Plt Count 212 Th/cmm (150-400) 09/27/18 18:35 MPV 8.7 fl 09/27/18 18:35 Neutrophils % 67.0 % (40.0-80.0) 09/27/18 18:35 Lymphocytes % 23.9 % (20.0-50.0) 09/27/18 18:35 Monocytes % 6.1 % (2.0-10.0) 09/27/18 18:35 Eosinophils % 2.1 % (0.0-5.0) 09/27/18 18:35 Basophils % 0.9 % (0.0-2.0) 09/27/18 18:35 Sodium 138 mEq/L (136-145) 09/27/18 18:35 Potassium 3.8 mEq/L (3.5-5.1) 09/27/18 18:35 Chloride 104 mEq/L (98-107) 09/27/18 18:35 Carbon Dioxide 24.7 mEq/L (21.0-31.0) 09/27/18 18:35 Anion Gap 13.1 (7.0-16.0) 09/27/18 18:35 BUN 17 mg/dL (7-25) 09/27/18 18:35 Creatinine 0.9 mg/dL (0.6-1.2) 09/27/18 18:35 Est GFR ( Amer) TNP 09/27/18 18:35 Est GFR (Non-Af Amer) TNP 09/27/18 18:35 BUN/Creatinine Ratio 18.9 09/27/18 18:35 Glucose 225 mg/dL (70-105) H 09/27/18 18:35 Calcium 9.7 mg/dL (8.6-10.3) 09/27/18 18:35 Phosphorus 3.3 mg/dL (2.5-5.0) 09/27/18 18:35 Magnesium 2.0 mg/dL (1.9-2.7) 09/27/18 18:35 Total Bilirubin 0.9 mg/dL (0.3-1.0) 09/27/18 18:35 AST 22 U/L (13-39) 09/27/18 18:35 ALT 15 U/L (7-52) 09/27/18 18:35 Alkaline Phosphatase 82 U/L (34-104) 09/27/18 18:35 Total Protein 6.4 gm/dL (6.0-8.3) 09/27/18 18:35 Albumin 3.9 gm/dL (3.7-5.3) 09/27/18 18:35 Globulin 2.5 gm/dL 09/27/18 18:35 Albumin/Globulin Ratio 1.6 (1.0-1.8) 09/27/18 18:35 Triglycerides 78 mg/dL (<150) 09/27/18 18:35 Cholesterol 166 mg/dL (<200) 09/27/18 18:35 LDL Cholesterol Direct 85 mg/dL (75-193) 09/27/18 18:35 HDL Cholesterol 72 mg/dL (23-92) 09/27/18 18:35 TSH 2.93 uIU/ml (0.34-5.60) 09/27/18 18:35 - Physical Exam Vitals and I&O: Vital Signs Temp 97.6 F 10/02/18 14:00 Pulse 79 10/02/18 14:00 Resp 20 10/02/18 14:00 BP 105/57 10/02/18 14:00 Pulse Ox 96 12/28/18 14:00 Intake & Output 10/02/18 10/02/18 10/03/18 06:59 18:59 06:59 Intake Total 240 1200 Output Total 1 Balance 239 1200 Weight (lbs) 46.266 kg Intake: Oral 240 1200 Output: Urine/Stool Mix 1 Other: # Voids 3 # Bowel Movements 0 1 Weight Source Bedscale Active Medications: Current Medications Acetaminophen (Tylenol) 650 mg PO Q4HR PRN PRN Reason: Mild Pain / Temp above 100 Stop: 11/26/18 22:47 Al Hydrox/Mg Hydrox/Simethicone (Maalox) 30 ml PO Q4HR PRN PRN Reason: GI DISTRESS Stop: 11/26/18 22:47 Aspirin (Ecotrin) 81 mg PO DAILY [facility] Stop: 11/27/18 08:59 Last Admin: 10/02/18 08:37 Dose: Not Given Haloperidol Decanoate (Haldol Dec) 25 mg IM [id number] [facility]; Protocol Stop: 11/28/18 08:59 Last Admin: 09/29/18 08:36 Dose: 25 mg Levothyroxine Sodium (Synthroid) 0.05 mg PO QDAC [facility] Stop: 11/27/18 07:29 Last Admin: 10/02/18 07:01 Dose: Not Given Lorazepam (Ativan) 0.5 mg PO Q4HR PRN; Protocol PRN Reason: Anxiety Stop: 10/27/18 22:47 Magnesium Hydroxide (Milk Of Magnesia) 30 ml PO HS PRN PRN Reason: Constipation Mirtazapine (Remeron) 15 mg PO HS [facility]; Protocol Stop: 11/27/18 20:59 Last Admin: 10/02/18 20:42 Dose: Not Given Oxcarbazepine (Trileptal) 150 mg PO BID [facility]; Protocol Stop: 11/27/18 08:59 Last Admin: 10/02/18 16:54 Dose: Not Given General: Alert, No acute distress HEENT: Atraumatic, PERRLA, EOMI Neck: Supple, no JVD Cardiovascular: Regular rate, Normal S1, Normal S2 Lungs: Clear to auscultation Abdomen: Bowel sounds Extremities: no Clubbing, no Cyanosis, no Edema Neurological: Normal gait Assessment/Plan - Problem List Patient Problems: All Active Problems DELUSIONAL THINKING AND POOR ORAL INTAKE (Acute) - Assessment Assessment: Current Active Problems Problem Status Onset DELUSIONAL THINKING AND POOR ORAL INTAKE Acute psychosis - [facility]. Nutritional Asmnt/Malnutr-PDOC - Dietary Evaluation Malnutrition Findings (Please click <Entered> for more info): Nutritional Asmnt/Malnutrition Start: 09/28/18 15: 25 Text: Status: Complete Freq: Protocol: Document 09/28/18 15:25 LCHENG (Rec: 09/28/18 15:36 LCHENG [email or web address]) Nutritional Asmnt/Malnutrition Patient General Information Nutritional Screening High Risk Consult Diagnosis psychosis Pertinent Medical Hx/Surgical Hx CAD, CVA/TIA Subjective Information Consult received for elevated glucose at admission. Glucose 225 noted. Per nurse note, pt has been refusing meals for 2 days before admitted. Per DIRECTOR OF DONOR RELATIONS, pt ate well, 75% of meals. Current Diet Order/ Nutrition Support regular Pertinent Medications synthroid, remeron Pertinent Labs 09/27 glucose 225 Nutritional Hx/Data Height 1.68 m Height (Calculated Centimeters) 167.6 Current Weight (lbs) 46.266 kg Weight (Calculated Kilograms) 46.3 Weight (Calculated Grams) 18805.4 [place] Body Weight 130 Body Mass Index (BMI) 16.5 Weight Status Underweight GI Symptoms GI Symptoms None Last BM none noted Difficult in: None Skin Integrity/Comment: intact Current %PO Good (75-100%) Estimated Nutritional Goals BEE in Kcals: Using Current wt Calories/Kcals/Kg 30-35 Kcals Calculated 8706-4915 Protein: Using Current wt Protein g/k.2 Protein Calculated 55 Fluid: ml 1380-1610ml (1ml/kcal) Nutritional Problem 1. Problem Problem altered nutrition related labs Etiology hyperglycemia Signs/Symptoms: glucose 225 Intervention/Recommendation Comments 1. Continue with regular diet as ordered. If glucose continue elevated, consider adding CCHO 60gm diet restriction 2. Monitor PO intake, wt, labs and skin integrity 3. F/U as high risk in 2-3 days Expected Outcomes/Goals Expected Outcomes/Goals 1. PO intake to meet at least 75% of nutritional needs. 2. Wt stability, skin to remain intact, labs to approach WNL.
[2018-10-03] MEDS: Levothyroxine 0.05 Mg Tab PO SCH (06:43)
--- NOTE | 2018-10-03 23:45 | Progress Notes ---
DATE: 10/03/2018 SUBJECTIVE: Staff was spoken to. The patient is interviewed. Mood is noted to be irritable. Affect is constricted. Coping skills are noted to be at this time are noted to be very poor. Insight and judgment are noted to be very limited. The patient has been refusing to take the medication. Continues to be very paranoid and has been accusing people of doing things behind her back and she states that she is from [employer] and [employer]. ASSESSMENT: The patient is grossly psychotic. PLAN: Plan to use the Haldol on a b.i.d. basis to see if the patient would respond to it. The patient since is conserved. Plan to continue the patient with the Haldol 5 mg b.i.d. and followup. JOB# [id number]
--- NOTE | 2018-10-04 06:30 | General Progress Note ---
Subjective - Review of Systems Service Date: 10/04/18 Subjective: Patient is awake, alert but confused. VS T97.6 P78 R19 BP 106/68 Objective - Results Result Diagrams: 09/27/18 18:35 09/27/18 18:35 Recent Labs: Laboratory Last Values WBC 5.6 Th/cmm (4.8-10.8) 09/27/18 18:35 RBC 4.83 Mil/cmm (3.80-5.20) 09/27/18 18:35 Hgb 14.2 gm/dL (12-16) 09/27/18 18:35 Hct 42.8 % (41.0-60) 09/27/18 18:35 MCV 88.8 fl (81-100) 09/27/18 18:35 MCH 29.3 pg (27.0-31.0) 09/27/18 18:35 MCHC Differential 33.1 pg (28.0-36.0) 09/27/18 18:35 RDW 12.8 % (11.5-20.0) 09/27/18 18:35 Plt Count 212 Th/cmm (150-400) 09/27/18 18:35 MPV 8.7 fl 09/27/18 18:35 Neutrophils % 67.0 % (40.0-80.0) 09/27/18 18:35 Lymphocytes % 23.9 % (20.0-50.0) 09/27/18 18:35 Monocytes % 6.1 % (2.0-10.0) 09/27/18 18:35 Eosinophils % 2.1 % (0.0-5.0) 09/27/18 18:35 Basophils % 0.9 % (0.0-2.0) 09/27/18 18:35 Sodium 138 mEq/L (136-145) 09/27/18 18:35 Potassium 3.8 mEq/L (3.5-5.1) 09/27/18 18:35 Chloride 104 mEq/L (98-107) 09/27/18 18:35 Carbon Dioxide 24.7 mEq/L (21.0-31.0) 09/27/18 18:35 Anion Gap 13.1 (7.0-16.0) 09/27/18 18:35 BUN 17 mg/dL (7-25) 09/27/18 18:35 Creatinine 0.9 mg/dL (0.6-1.2) 09/27/18 18:35 Est GFR ( Amer) TNP 09/27/18 18:35 Est GFR (Non-Af Amer) TNP 09/27/18 18:35 BUN/Creatinine Ratio 18.9 09/27/18 18:35 Glucose 225 mg/dL (70-105) H 09/27/18 18:35 Calcium 9.7 mg/dL (8.6-10.3) 09/27/18 18:35 Phosphorus 3.3 mg/dL (2.5-5.0) 09/27/18 18:35 Magnesium 2.0 mg/dL (1.9-2.7) 09/27/18 18:35 Total Bilirubin 0.9 mg/dL (0.3-1.0) 09/27/18 18:35 AST 22 U/L (13-39) 09/27/18 18:35 ALT 15 U/L (7-52) 09/27/18 18:35 Alkaline Phosphatase 82 U/L (34-104) 09/27/18 18:35 Total Protein 6.4 gm/dL (6.0-8.3) 09/27/18 18:35 Albumin 3.9 gm/dL (3.7-5.3) 09/27/18 18:35 Globulin 2.5 gm/dL 09/27/18 18:35 Albumin/Globulin Ratio 1.6 (1.0-1.8) 09/27/18 18:35 Triglycerides 78 mg/dL (<150) 09/27/18 18:35 Cholesterol 166 mg/dL (<200) 09/27/18 18:35 LDL Cholesterol Direct 85 mg/dL (75-193) 09/27/18 18:35 HDL Cholesterol 72 mg/dL (23-92) 09/27/18 18:35 TSH 2.93 uIU/ml (0.34-5.60) 09/27/18 18:35 - Physical Exam Vitals and I&O: Vital Signs Temp 97.6 F 10/04/18 06:18 Pulse 78 10/04/18 06:18 Resp 19 10/04/18 06:18 BP 106/68 10/04/18 06:18 Pulse Ox 97 12/30/18 06:18 Intake & Output 10/03/18 10/03/18 10/04/18 06:59 18:59 06:59 Intake Total 1500 120 Balance 1500 120 Intake: Oral 1500 120 Other: # Voids 3 1 # Bowel Movements 0 Active Medications: Current Medications Acetaminophen (Tylenol) 650 mg PO Q4HR PRN PRN Reason: Mild Pain / Temp above 100 Stop: 11/26/18 22:47 Al Hydrox/Mg Hydrox/Simethicone (Maalox) 30 ml PO Q4HR PRN PRN Reason: GI DISTRESS Stop: 11/26/18 22:47 Aspirin (Ecotrin) 81 mg PO DAILY KINJAL Stop: 11/27/18 08:59 Last Admin: 10/03/18 08:45 Dose: Not Given Haloperidol (Haldol) 5 mg PO BID [facility]; Protocol Stop: 12/02/18 16:59 Last Admin: 10/03/18 17:17 Dose: 5 mg Haloperidol Decanoate (Haldol Dec) 25 mg IM [id number] [facility]; Protocol Stop: 11/28/18 08:59 Last Admin: 09/29/18 08:36 Dose: 25 mg Levothyroxine Sodium (Synthroid) 0.05 mg PO QDAC KINJAL Stop: 11/27/18 07:29 Last Admin: 10/03/18 06:43 Dose: Not Given Lorazepam (Ativan) 0.5 mg PO Q4HR PRN; Protocol PRN Reason: Anxiety Stop: 10/27/18 22:47 Magnesium Hydroxide (Milk Of Magnesia) 30 ml PO HS PRN PRN Reason: Constipation Mirtazapine (Remeron) 15 mg PO HS [facility]; Protocol Stop: 11/27/18 20:59 Last Admin: 10/03/18 21:13 Dose: Not Given Oxcarbazepine (Trileptal) 150 mg PO BID [facility]; Protocol Stop: 11/27/18 08:59 Last Admin: 10/03/18 17:15 Dose: 150 mg General: Alert, No acute distress HEENT: Atraumatic, PERRLA, EOMI Neck: Supple, no JVD Cardiovascular: Regular rate, Normal S1, Normal S2 Lungs: Clear to auscultation Abdomen: Bowel sounds Extremities: no Clubbing, no Cyanosis, no Edema Neurological: Normal gait Assessment/Plan - Problem List Patient Problems: All Active Problems DELUSIONAL THINKING AND POOR ORAL INTAKE (Acute) - Assessment Assessment: Current Active Problems Problem Status Onset DELUSIONAL THINKING AND POOR ORAL INTAKE Acute psychosis - Plan Plan: admit to [facility] continue current medications. Nutritional Asmnt/Malnutr-PDOC - Dietary Evaluation Malnutrition Findings (Please click <Entered> for more info): Nutritional Asmnt/Malnutrition Start: 09/28/18 15: 25 Text: Status: Complete Freq: Protocol: Document 09/28/18 15:25 LCHENG (Rec: 09/28/18 15:36 [email or web address] [email or web address]) Nutritional Asmnt/Malnutrition Patient General Information Nutritional Screening High Risk Consult Diagnosis psychosis Pertinent Medical Hx/Surgical Hx CAD, CVA/TIA Subjective Information Consult received for elevated glucose at admission. Glucose 225 noted. Per nurse note, pt has been refusing meals for 2 days before admitted. Per TIER LIFT OPERATOR, pt ate well, 75% of meals. Current Diet Order/ Nutrition Support regular Pertinent Medications synthroid, remeron Pertinent Labs 09/27 glucose 225 Nutritional Hx/Data Height 1.68 m Height (Calculated Centimeters) 167.6 Current Weight (lbs) 46.266 kg Weight (Calculated Kilograms) 46.3 Weight (Calculated Grams) 62470.4 [place] Body Weight 130 Body Mass Index (BMI) 16.5 Weight Status Underweight GI Symptoms GI Symptoms None Last BM none noted Difficult in: None Skin Integrity/Comment: intact Current %PO Good (75-100%) Estimated Nutritional Goals BEE in Kcals: Using Current wt Calories/Kcals/Kg 30-35 Kcals Calculated 7038-9775 Protein: Using Current wt Protein g/k.2 Protein Calculated 55 Fluid: ml 1380-1610ml (1ml/kcal) Nutritional Problem 1. Problem Problem altered nutrition related labs Etiology hyperglycemia Signs/Symptoms: glucose 225 Intervention/Recommendation Comments 1. Continue with regular diet as ordered. If glucose continue elevated, consider adding CCHO 60gm diet restriction 2. Monitor PO intake, wt, labs and skin integrity 3. F/U as high risk in 2-3 days Expected Outcomes/Goals Expected Outcomes/Goals 1. PO intake to meet at least 75% of nutritional needs. 2. Wt stability, skin to remain intact, labs to approach WNL.
[2018-10-04] MEDS: Levothyroxine 0.05 Mg Tab PO SCH (06:38)
--- NOTE | 2018-10-04 15:44 | Progress Notes ---
DATE: 10/04/2018 SUBJECTIVE: Staff was spoken to. The patient is interviewed. Mood is noted to be irritable. Affect is constricted. Coping skills are noted to be poor. Sleep and appetite also noted to be poor. The patient has been having difficult time to cope with the stress. No side effects to the medications are noted. ASSESSMENT: The patient is still paranoid and is still feeling that the ____ is after her and the patient is not able to make any sense at this time. PLAN: To continue the patient with the supportive therapy, encouraged the patient to verbalize the concerns rather than to act out. JOB# [id number]
--- NOTE | 2018-10-05 06:03 | General Progress Note ---
Subjective - Review of Systems Service Date: 10/05/18 Subjective: Patient is awake, alert but confused. VS T98.0 P77 R19 BP 130/78 Objective - Results Result Diagrams: 09/27/18 18:35 09/27/18 18:35 Recent Labs: Laboratory Last Values WBC 5.6 Th/cmm (4.8-10.8) 09/27/18 18:35 RBC 4.83 Mil/cmm (3.80-5.20) 09/27/18 18:35 Hgb 14.2 gm/dL (12-16) 09/27/18 18:35 Hct 42.8 % (41.0-60) 09/27/18 18:35 MCV 88.8 fl (81-100) 09/27/18 18:35 MCH 29.3 pg (27.0-31.0) 09/27/18 18:35 MCHC Differential 33.1 pg (28.0-36.0) 09/27/18 18:35 RDW 12.8 % (11.5-20.0) 09/27/18 18:35 Plt Count 212 Th/cmm (150-400) 09/27/18 18:35 MPV 8.7 fl 09/27/18 18:35 Neutrophils % 67.0 % (40.0-80.0) 09/27/18 18:35 Lymphocytes % 23.9 % (20.0-50.0) 09/27/18 18:35 Monocytes % 6.1 % (2.0-10.0) 09/27/18 18:35 Eosinophils % 2.1 % (0.0-5.0) 09/27/18 18:35 Basophils % 0.9 % (0.0-2.0) 09/27/18 18:35 Sodium 138 mEq/L (136-145) 09/27/18 18:35 Potassium 3.8 mEq/L (3.5-5.1) 09/27/18 18:35 Chloride 104 mEq/L (98-107) 09/27/18 18:35 Carbon Dioxide 24.7 mEq/L (21.0-31.0) 09/27/18 18:35 Anion Gap 13.1 (7.0-16.0) 09/27/18 18:35 BUN 17 mg/dL (7-25) 09/27/18 18:35 Creatinine 0.9 mg/dL (0.6-1.2) 09/27/18 18:35 Est GFR ( Amer) TNP 09/27/18 18:35 Est GFR (Non-Af Amer) TNP 09/27/18 18:35 BUN/Creatinine Ratio 18.9 09/27/18 18:35 Glucose 225 mg/dL (70-105) H 09/27/18 18:35 Calcium 9.7 mg/dL (8.6-10.3) 09/27/18 18:35 Phosphorus 3.3 mg/dL (2.5-5.0) 09/27/18 18:35 Magnesium 2.0 mg/dL (1.9-2.7) 09/27/18 18:35 Total Bilirubin 0.9 mg/dL (0.3-1.0) 09/27/18 18:35 AST 22 U/L (13-39) 09/27/18 18:35 ALT 15 U/L (7-52) 09/27/18 18:35 Alkaline Phosphatase 82 U/L (34-104) 09/27/18 18:35 Total Protein 6.4 gm/dL (6.0-8.3) 09/27/18 18:35 Albumin 3.9 gm/dL (3.7-5.3) 09/27/18 18:35 Globulin 2.5 gm/dL 09/27/18 18:35 Albumin/Globulin Ratio 1.6 (1.0-1.8) 09/27/18 18:35 Triglycerides 78 mg/dL (<150) 09/27/18 18:35 Cholesterol 166 mg/dL (<200) 09/27/18 18:35 LDL Cholesterol Direct 85 mg/dL (75-193) 09/27/18 18:35 HDL Cholesterol 72 mg/dL (23-92) 09/27/18 18:35 TSH 2.93 uIU/ml (0.34-5.60) 09/27/18 18:35 - Physical Exam Vitals and I&O: Vital Signs Temp 98 F 10/05/18 05:59 Pulse 77 10/05/18 05:59 Resp 19 10/05/18 05:59 BP 130/78 12/31/18 05:59 Pulse Ox 98 10/05/18 05:59 Intake & Output 10/04/18 10/04/18 10/05/18 06:59 18:59 06:59 Intake Total 120 Balance 120 Intake: Oral 120 Other: # Voids 2 2 # Bowel Movements 0 Active Medications: Current Medications Acetaminophen (Tylenol) 650 mg PO Q4HR PRN PRN Reason: Mild Pain / Temp above 100 Stop: 11/26/18 22:47 Al Hydrox/Mg Hydrox/Simethicone (Maalox) 30 ml PO Q4HR PRN PRN Reason: GI DISTRESS Stop: 11/26/18 22:47 Aspirin (Ecotrin) 81 mg PO DAILY KINJAL Stop: 11/27/18 08:59 Last Admin: 10/04/18 08:08 Dose: Not Given Haloperidol (Haldol) 5 mg PO BID [facility]; Protocol Stop: 12/02/18 16:59 Last Admin: 10/04/18 16:23 Dose: Not Given Haloperidol Decanoate (Haldol Dec) 25 mg IM [id number] [facility]; Protocol Stop: 11/28/18 08:59 Last Admin: 09/29/18 08:36 Dose: 25 mg Levothyroxine Sodium (Synthroid) 0.05 mg PO QDAC KINJAL Stop: 11/27/18 07:29 Last Admin: 10/04/18 06:38 Dose: Not Given Lorazepam (Ativan) 0.5 mg PO Q4HR PRN; Protocol PRN Reason: Anxiety Stop: 10/27/18 22:47 Magnesium Hydroxide (Milk Of Magnesia) 30 ml PO HS PRN PRN Reason: Constipation Mirtazapine (Remeron) 15 mg PO HS [facility]; Protocol Stop: 11/27/18 20:59 Last Admin: 10/04/18 21:30 Dose: Not Given Oxcarbazepine (Trileptal) 150 mg PO BID [facility]; Protocol Stop: 11/27/18 08:59 Last Admin: 10/04/18 16:23 Dose: Not Given General: Alert, No acute distress HEENT: Atraumatic, PERRLA, EOMI Neck: Supple, no JVD Cardiovascular: Regular rate, Normal S1, Normal S2 Lungs: Clear to auscultation Abdomen: Bowel sounds Extremities: no Clubbing, no Cyanosis, no Edema Neurological: Normal gait Assessment/Plan - Problem List Patient Problems: All Active Problems DELUSIONAL THINKING AND POOR ORAL INTAKE (Acute) - Assessment Assessment: Current Active Problems Problem Status Onset DELUSIONAL THINKING AND POOR ORAL INTAKE Acute psychosis - Plan Plan: admit to [facility] continue current medications. Nutritional Asmnt/Malnutr-PDOC - Dietary Evaluation Malnutrition Findings (Please click <Entered> for more info): Nutritional Asmnt/Malnutrition Start: 09/28/18 15: 25 Text: Status: Complete Freq: Protocol: Document 09/28/18 15:25 LCHENG (Rec: 09/28/18 15:36 LCHENG [email or web address]) Nutritional Asmnt/Malnutrition Patient General Information Nutritional Screening High Risk Consult Diagnosis psychosis Pertinent Medical Hx/Surgical Hx CAD, CVA/TIA Subjective Information Consult received for elevated glucose at admission. Glucose 225 noted. Per nurse note, pt has been refusing meals for 2 days before admitted. Per BOX TOE STITCHER, pt ate well, 75% of meals. Current Diet Order/ Nutrition Support regular Pertinent Medications synthroid, remeron Pertinent Labs 09/27 glucose 225 Nutritional Hx/Data Height 1.68 m Height (Calculated Centimeters) 167.6 Current Weight (lbs) 46.266 kg Weight (Calculated Kilograms) 46.3 Weight (Calculated Grams) 27546.4 [place] Body Weight 130 Body Mass Index (BMI) 16.5 Weight Status Underweight GI Symptoms GI Symptoms None Last BM none noted Difficult in: None Skin Integrity/Comment: intact Current %PO Good (75-100%) Estimated Nutritional Goals BEE in Kcals: Using Current wt Calories/Kcals/Kg 30-35 Kcals Calculated 7080-1261 Protein: Using Current wt Protein g/k.2 Protein Calculated 55 Fluid: ml 1380-1610ml (1ml/kcal) Nutritional Problem 1. Problem Problem altered nutrition related labs Etiology hyperglycemia Signs/Symptoms: glucose 225 Intervention/Recommendation Comments 1. Continue with regular diet as ordered. If glucose continue elevated, consider adding CCHO 60gm diet restriction 2. Monitor PO intake, wt, labs and skin integrity 3. F/U as high risk in 2-3 days Expected Outcomes/Goals Expected Outcomes/Goals 1. PO intake to meet at least 75% of nutritional needs. 2. Wt stability, skin to remain intact, labs to approach WNL.
[2018-10-05] MEDS: Levothyroxine 0.05 Mg Tab PO SCH (06:40)
--- NOTE | 2018-10-05 12:44 | Progress Notes ---
DATE: 10/05/2018 SUBJECTIVE: Staff was spoken to. The patient is interviewed. Mood is noted to be irritable. Affect is constricted. Insight and judgment at this time are noted to be still impaired. Impulse control is noted to be limited. The patient has been very paranoid. The patient has no insight into her illness. The patient is still testing the limits. ASSESSMENT: The patient is still grossly psychotic. PLAN: To continue the patient with current medications. Encouraged the patient to verbalize the concerns rather than to act out. JOB# [id number]
--- NOTE | 2018-10-06 06:57 | General Progress Note ---
Subjective - Review of Systems Service Date: 10/06/18 Subjective: Patient is awake, alert but confused. VS T98.3 P79 R20 BP 113/69 Objective - Results Result Diagrams: 09/27/18 18:35 09/27/18 18:35 Recent Labs: Laboratory Last Values WBC 5.6 Th/cmm (4.8-10.8) 09/27/18 18:35 RBC 4.83 Mil/cmm (3.80-5.20) 09/27/18 18:35 Hgb 14.2 gm/dL (12-16) 09/27/18 18:35 Hct 42.8 % (41.0-60) 09/27/18 18:35 MCV 88.8 fl (81-100) 09/27/18 18:35 MCH 29.3 pg (27.0-31.0) 09/27/18 18:35 MCHC Differential 33.1 pg (28.0-36.0) 09/27/18 18:35 RDW 12.8 % (11.5-20.0) 09/27/18 18:35 Plt Count 212 Th/cmm (150-400) 09/27/18 18:35 MPV 8.7 fl 09/27/18 18:35 Neutrophils % 67.0 % (40.0-80.0) 09/27/18 18:35 Lymphocytes % 23.9 % (20.0-50.0) 09/27/18 18:35 Monocytes % 6.1 % (2.0-10.0) 09/27/18 18:35 Eosinophils % 2.1 % (0.0-5.0) 09/27/18 18:35 Basophils % 0.9 % (0.0-2.0) 09/27/18 18:35 Sodium 138 mEq/L (136-145) 09/27/18 18:35 Potassium 3.8 mEq/L (3.5-5.1) 09/27/18 18:35 Chloride 104 mEq/L (98-107) 09/27/18 18:35 Carbon Dioxide 24.7 mEq/L (21.0-31.0) 09/27/18 18:35 Anion Gap 13.1 (7.0-16.0) 09/27/18 18:35 BUN 17 mg/dL (7-25) 09/27/18 18:35 Creatinine 0.9 mg/dL (0.6-1.2) 09/27/18 18:35 Est GFR ( Amer) TNP 09/27/18 18:35 Est GFR (Non-Af Amer) TNP 09/27/18 18:35 BUN/Creatinine Ratio 18.9 09/27/18 18:35 Glucose 225 mg/dL (70-105) H 09/27/18 18:35 Calcium 9.7 mg/dL (8.6-10.3) 09/27/18 18:35 Phosphorus 3.3 mg/dL (2.5-5.0) 09/27/18 18:35 Magnesium 2.0 mg/dL (1.9-2.7) 09/27/18 18:35 Total Bilirubin 0.9 mg/dL (0.3-1.0) 09/27/18 18:35 AST 22 U/L (13-39) 09/27/18 18:35 ALT 15 U/L (7-52) 09/27/18 18:35 Alkaline Phosphatase 82 U/L (34-104) 09/27/18 18:35 Total Protein 6.4 gm/dL (6.0-8.3) 09/27/18 18:35 Albumin 3.9 gm/dL (3.7-5.3) 09/27/18 18:35 Globulin 2.5 gm/dL 09/27/18 18:35 Albumin/Globulin Ratio 1.6 (1.0-1.8) 09/27/18 18:35 Triglycerides 78 mg/dL (<150) 09/27/18 18:35 Cholesterol 166 mg/dL (<200) 09/27/18 18:35 LDL Cholesterol Direct 85 mg/dL (75-193) 09/27/18 18:35 HDL Cholesterol 72 mg/dL (23-92) 09/27/18 18:35 TSH 2.93 uIU/ml (0.34-5.60) 09/27/18 18:35 - Physical Exam Vitals and I&O: Vital Signs Temp 98.3 F 10/06/18 06:29 Pulse 79 10/06/18 06:29 Resp 20 10/06/18 06:29 BP 113/69 10/06/18 06:29 Pulse Ox 99 01/01/19 06:29 Intake & Output 10/05/18 10/05/18 10/06/18 06:59 18:59 06:59 Intake Total 700 660 Balance 700 660 Intake: Oral 700 660 Other: # Voids 3 2 # Bowel Movements 1 0 Active Medications: Current Medications Acetaminophen (Tylenol) 650 mg PO Q4HR PRN PRN Reason: Mild Pain / Temp above 100 Stop: 11/26/18 22:47 Al Hydrox/Mg Hydrox/Simethicone (Maalox) 30 ml PO Q4HR PRN PRN Reason: GI DISTRESS Stop: 11/26/18 22:47 Aspirin (Ecotrin) 81 mg PO DAILY KINJAL Stop: 11/27/18 08:59 Last Admin: 10/05/18 10:33 Dose: Not Given Haloperidol (Haldol) 5 mg PO BID [facility]; Protocol Stop: 12/02/18 16:59 Last Admin: 10/05/18 10:33 Dose: Not Given Haloperidol Decanoate (Haldol Dec) 25 mg IM [id number] [facility]; Protocol Stop: 11/28/18 08:59 Last Admin: 09/29/18 08:36 Dose: 25 mg Levothyroxine Sodium (Synthroid) 0.05 mg PO QDAC KINJAL Stop: 11/27/18 07:29 Last Admin: 10/05/18 06:40 Dose: Not Given Lorazepam (Ativan) 0.5 mg PO Q4HR PRN; Protocol PRN Reason: Anxiety Stop: 10/27/18 22:47 Magnesium Hydroxide (Milk Of Magnesia) 30 ml PO HS PRN PRN Reason: Constipation Mirtazapine (Remeron) 15 mg PO HS [facility]; Protocol Stop: 11/27/18 20:59 Last Admin: 10/05/18 20:29 Dose: Not Given Oxcarbazepine (Trileptal) 150 mg PO BID [facility]; Protocol Stop: 11/27/18 08:59 Last Admin: 10/05/18 10:33 Dose: Not Given General: Alert, No acute distress HEENT: Atraumatic, PERRLA, EOMI Neck: Supple, no JVD Cardiovascular: Regular rate, Normal S1, Normal S2 Lungs: Clear to auscultation Abdomen: Bowel sounds Extremities: no Clubbing, no Cyanosis, no Edema Neurological: Normal gait Assessment/Plan - Problem List Patient Problems: All Active Problems DELUSIONAL THINKING AND POOR ORAL INTAKE (Acute) - Assessment Assessment: Current Active Problems Problem Status Onset DELUSIONAL THINKING AND POOR ORAL INTAKE Acute psychosis - Plan [facility]. Nutritional Asmnt/Malnutr-PDOC - Dietary Evaluation Malnutrition Findings (Please click <Entered> for more info): Nutritional Asmnt/Malnutrition Start: 09/28/18 15: 25 Text: Status: Complete Freq: Protocol: Document 09/28/18 15:25 LCHENG (Rec: 09/28/18 15:36 LCHENG [email or web address]) Nutritional Asmnt/Malnutrition Patient General Information Nutritional Screening High Risk Consult Diagnosis psychosis Pertinent Medical Hx/Surgical Hx CAD, CVA/TIA Subjective Information Consult received for elevated glucose at admission. Glucose 225 noted. Per nurse note, pt has been refusing meals for 2 days before admitted. Per CORRECTIONAL COUNSELOR/CASE MANAGER, pt ate well, 75% of meals. Current Diet Order/ Nutrition Support regular Pertinent Medications synthroid, remeron Pertinent Labs 09/27 glucose 225 Nutritional Hx/Data Height 1.68 m Height (Calculated Centimeters) 167.6 Current Weight (lbs) 46.266 kg Weight (Calculated Kilograms) 46.3 Weight (Calculated Grams) 37205.4 [place] Body Weight 130 Body Mass Index (BMI) 16.5 Weight Status Underweight GI Symptoms GI Symptoms None Last BM none noted Difficult in: None Skin Integrity/Comment: intact Current %PO Good (75-100%) Estimated Nutritional Goals BEE in Kcals: Using Current wt Calories/Kcals/Kg 30-35 Kcals Calculated 2100-7071 Protein: Using Current wt Protein g/k.2 Protein Calculated 55 Fluid: ml 1380-1610ml (1ml/kcal) Nutritional Problem 1. Problem Problem altered nutrition related labs Etiology hyperglycemia Signs/Symptoms: glucose 225 Intervention/Recommendation Comments 1. Continue with regular diet as ordered. If glucose continue elevated, consider adding CCHO 60gm diet restriction 2. Monitor PO intake, wt, labs and skin integrity 3. F/U as high risk in 2-3 days Expected Outcomes/Goals Expected Outcomes/Goals 1. PO intake to meet at least 75% of nutritional needs. 2. Wt stability, skin to remain intact, labs to approach WNL.
[2018-10-06] MEDS: Levothyroxine 0.05 Mg Tab PO SCH (06:59)
--- NOTE | 2018-10-06 21:29 | Progress Notes ---
DATE: 10/06/2018 SUBJECTIVE: Staff was spoken to. The patient is interviewed. Mood is noted to be irritable. Affect is constricted. Insight and judgment are noted to be still impaired. Impulse control is noted to be limited. Coping skills are noted to be limited. The patient has been very much vocal on stating that she is working for the [employer] and the [employer] is after therapy. The patient is not making much sense. The patient is currently on haloperidol 5 mg b.i.d., oxcarbazepine 150 mg b.i.d., and mirtazapine 15 mg at bedtime. The patient has been able to tolerate the medications, but the patient continues to be psychotic. No side effects to the medications are noted at this time. ASSESSMENT: The patient is still psychotic. PLAN: To continue the patient with the above medications and closely monitor the patient's behavior. JOB# [id number]
--- NOTE | 2018-10-06 22:56 | Progress Notes ---
DATE: 10/05/2018 SUBJECTIVE: The patient is seen in her room. The patient presents as guarded and suspicious. The patient continues to present as experiencing paranoid ideation. The staff indicate the patient has been testing the limits with the staff on the unit. The patient reports that she feels she does not belong in the hospital and is demanding to be discharged. OBJECTIVE: Mood is irritable. Affect is constricted. Thought process is distractible due to psychotic process. The patient is experiencing paranoid ideation and possibly responding to internal stimuli. The patient's behavior has been easily agitated and at times acting out. Impulse control is inadequate. ASSESSMENT: History of schizophrenia, chronic paranoid type. PLAN: The patient continues to be monitored by the attending psychiatrist on the current medications. We provided motivational enhancement for the patient to verbalize her concerns versus acting out. We provided reality orientation, differentiation, and integration. We encouraged the patient to be able to demonstrate emotional and self-regulation. We provided remotivation for the patient to become compliant and stay compliant with all aspects of her care as well as to be able to follow through with staff direction. We provided coping strategies for chronic severe mental illness well. We will follow up 2 to 3 days to continue present treatment. JOB# [id number] SIMÓN
[2018-10-07] MEDS: Levothyroxine 0.05 Mg Tab PO SCH (06:57)
--- NOTE | 2018-10-07 07:43 | General Progress Note ---
Subjective - Review of Systems Service Date: 10/07/18 Subjective: Patient is awake, alert but confused. VS T96.6 P75 R20 BP 132/75 Objective - Results Result Diagrams: 09/27/18 18:35 09/27/18 18:35 Recent Labs: Laboratory Last Values WBC 5.6 Th/cmm (4.8-10.8) 09/27/18 18:35 RBC 4.83 Mil/cmm (3.80-5.20) 09/27/18 18:35 Hgb 14.2 gm/dL (12-16) 09/27/18 18:35 Hct 42.8 % (41.0-60) 09/27/18 18:35 MCV 88.8 fl (81-100) 09/27/18 18:35 MCH 29.3 pg (27.0-31.0) 09/27/18 18:35 MCHC Differential 33.1 pg (28.0-36.0) 09/27/18 18:35 RDW 12.8 % (11.5-20.0) 09/27/18 18:35 Plt Count 212 Th/cmm (150-400) 09/27/18 18:35 MPV 8.7 fl 09/27/18 18:35 Neutrophils % 67.0 % (40.0-80.0) 09/27/18 18:35 Lymphocytes % 23.9 % (20.0-50.0) 09/27/18 18:35 Monocytes % 6.1 % (2.0-10.0) 09/27/18 18:35 Eosinophils % 2.1 % (0.0-5.0) 09/27/18 18:35 Basophils % 0.9 % (0.0-2.0) 09/27/18 18:35 Sodium 138 mEq/L (136-145) 09/27/18 18:35 Potassium 3.8 mEq/L (3.5-5.1) 09/27/18 18:35 Chloride 104 mEq/L (98-107) 09/27/18 18:35 Carbon Dioxide 24.7 mEq/L (21.0-31.0) 09/27/18 18:35 Anion Gap 13.1 (7.0-16.0) 09/27/18 18:35 BUN 17 mg/dL (7-25) 09/27/18 18:35 Creatinine 0.9 mg/dL (0.6-1.2) 09/27/18 18:35 Est GFR ( Amer) TNP 09/27/18 18:35 Est GFR (Non-Af Amer) TNP 09/27/18 18:35 BUN/Creatinine Ratio 18.9 09/27/18 18:35 Glucose 225 mg/dL (70-105) H 09/27/18 18:35 Calcium 9.7 mg/dL (8.6-10.3) 09/27/18 18:35 Phosphorus 3.3 mg/dL (2.5-5.0) 09/27/18 18:35 Magnesium 2.0 mg/dL (1.9-2.7) 09/27/18 18:35 Total Bilirubin 0.9 mg/dL (0.3-1.0) 09/27/18 18:35 AST 22 U/L (13-39) 09/27/18 18:35 ALT 15 U/L (7-52) 09/27/18 18:35 Alkaline Phosphatase 82 U/L (34-104) 09/27/18 18:35 Total Protein 6.4 gm/dL (6.0-8.3) 09/27/18 18:35 Albumin 3.9 gm/dL (3.7-5.3) 09/27/18 18:35 Globulin 2.5 gm/dL 09/27/18 18:35 Albumin/Globulin Ratio 1.6 (1.0-1.8) 09/27/18 18:35 Triglycerides 78 mg/dL (<150) 09/27/18 18:35 Cholesterol 166 mg/dL (<200) 09/27/18 18:35 LDL Cholesterol Direct 85 mg/dL (75-193) 09/27/18 18:35 HDL Cholesterol 72 mg/dL (23-92) 09/27/18 18:35 TSH 2.93 uIU/ml (0.34-5.60) 09/27/18 18:35 - Physical Exam Vitals and I&O: Vital Signs Temp 96.6 F 10/07/18 06:37 Pulse 75 10/07/18 06:37 Resp 20 10/07/18 06:37 BP 132/75 10/07/18 06:37 Pulse Ox 97 10/07/18 06:37 Intake & Output 10/06/18 10/07/18 10/07/18 18:59 06:59 18:59 Intake Total 700 300 Balance 700 300 Intake: Oral 700 300 Other: # Voids 3 1 # Bowel Movements 0 0 Active Medications: Current Medications Acetaminophen (Tylenol) 650 mg PO Q4HR PRN PRN Reason: Mild Pain / Temp above 100 Stop: 11/26/18 22:47 Al Hydrox/Mg Hydrox/Simethicone (Maalox) 30 ml PO Q4HR PRN PRN Reason: GI DISTRESS Stop: 11/26/18 22:47 Aspirin (Ecotrin) 81 mg PO DAILY KINJAL Stop: 11/27/18 08:59 Last Admin: 10/06/18 09:34 Dose: Not Given Haloperidol (Haldol) 5 mg PO BID [facility]; Protocol Stop: 12/02/18 16:59 Last Admin: 10/06/18 17:51 Dose: Not Given Haloperidol Decanoate (Haldol Dec) 25 mg IM [id number] [facility]; Protocol Stop: 11/28/18 08:59 Last Admin: 09/29/18 08:36 Dose: 25 mg Levothyroxine Sodium (Synthroid) 0.05 mg PO QDAC KINJAL Stop: 11/27/18 07:29 Last Admin: 10/07/18 06:57 Dose: Not Given Lorazepam (Ativan) 0.5 mg PO Q4HR PRN; Protocol PRN Reason: Anxiety Stop: 10/27/18 22:47 Magnesium Hydroxide (Milk Of Magnesia) 30 ml PO HS PRN PRN Reason: Constipation Mirtazapine (Remeron) 15 mg PO HS [facility]; Protocol Stop: 11/27/18 20:59 Last Admin: 10/06/18 20:51 Dose: Not Given Oxcarbazepine (Trileptal) 150 mg PO BID [facility]; Protocol Stop: 11/27/18 08:59 Last Admin: 10/06/18 17:51 Dose: Not Given General: Alert, No acute distress HEENT: Atraumatic, PERRLA, EOMI Neck: Supple, no JVD Cardiovascular: Regular rate, Normal S1, Normal S2 Lungs: Clear to auscultation Abdomen: Bowel sounds Extremities: no Clubbing, no Cyanosis, no Edema Neurological: Normal gait Assessment/Plan - Problem List Patient Problems: All Active Problems DELUSIONAL THINKING AND POOR ORAL INTAKE (Acute) - Assessment Assessment: Current Active Problems Problem Status Onset DELUSIONAL THINKING AND POOR ORAL INTAKE Acute psychosis - Plan Plan: admit to [facility] continue current medications. Nutritional Asmnt/Malnutr-PDOC - Dietary Evaluation Malnutrition Findings (Please click <Entered> for more info): Nutritional Asmnt/Malnutrition Start: 09/28/18 15: 25 Text: Status: Complete Freq: Protocol: Document 09/28/18 15:25 LCHENG (Rec: 09/28/18 15:36 [email or web address] [email or web address]) Nutritional Asmnt/Malnutrition Patient General Information Nutritional Screening High Risk Consult Diagnosis psychosis Pertinent Medical Hx/Surgical Hx CAD, CVA/TIA Subjective Information Consult received for elevated glucose at admission. Glucose 225 noted. Per nurse note, pt has been refusing meals for 2 days before admitted. Per [employer], pt ate well, 75% of meals. Current Diet Order/ Nutrition Support regular Pertinent Medications synthroid, remeron Pertinent Labs 09/27 glucose 225 Nutritional Hx/Data Height 1.68 m Height (Calculated Centimeters) 167.6 Current Weight (lbs) 46.266 kg Weight (Calculated Kilograms) 46.3 Weight (Calculated Grams) 78797.4 [place] Body Weight 130 Body Mass Index (BMI) 16.5 Weight Status Underweight GI Symptoms GI Symptoms None Last BM none noted Difficult in: None Skin Integrity/Comment: intact Current %PO Good (75-100%) Estimated Nutritional Goals BEE in Kcals: Using Current wt Calories/Kcals/Kg 30-35 Kcals Calculated 3843-0682 Protein: Using Current wt Protein g/k.2 Protein Calculated 55 Fluid: ml 1380-1610ml (1ml/kcal) Nutritional Problem 1. Problem Problem altered nutrition related labs Etiology hyperglycemia Signs/Symptoms: glucose 225 Intervention/Recommendation Comments 1. Continue with regular diet as ordered. If glucose continue elevated, consider adding CCHO 60gm diet restriction 2. Monitor PO intake, wt, labs and skin integrity 3. F/U as high risk in 2-3 days Expected Outcomes/Goals Expected Outcomes/Goals 1. PO intake to meet at least 75% of nutritional needs. 2. Wt stability, skin to remain intact, labs to approach WNL.
--- NOTE | 2018-10-07 15:59 | Progress Notes ---
DATE: 10/07/2018 PSYCHOLOGY PROGRESS NOTE SUBJECTIVE: The patient has been seen and interviewed. The patient is still testing limits with the staff. Impulse control is limited. The patient is not making much sense and is verbalizing persecutory type of delusion, i.e., stating that she works with the [employer] and [employer] and that they know where she is and is keeping her here. OBJECTIVE: Mood is irritable. Affect is constricted. Thought process indicates psychosis and paranoid delusions persist. The patient's behavior is difficult to redirect at times. ASSESSMENT: Schizophrenia, chronic, paranoid type. PLAN: Continue treatment to include reality orientation, differentiation, and integration. We will provide coping strategies for chronic mental illness and phase of life issues. Remotivation given for compliance with care and treatment. DICTATION ENDS HERE JOB# [id number] MTDD
--- NOTE | 2018-10-07 23:36 | Progress Notes ---
DATE: 10/07/2018 PSYCHIATRIC PROGRESS NOTE SUBJECTIVE: Staff was spoken to. The patient is interviewed. Mood is noted to be irritable. Affect is constricted. Insight and judgment at this time are noted to be still impaired. Impulse control is noted to be limited. The patient has paranoid delusions, but denies any command hallucinations. ASSESSMENT: The patient is still psychotic. PLAN: To continue the patient with the supportive therapy and followup. JOB# [id number]
[2018-10-08] MEDS: Levothyroxine 0.05 Mg Tab PO SCH (06:55)
--- NOTE | 2018-10-08 08:02 | General Progress Note ---
Subjective - Review of Systems Service Date: 10/08/18 Subjective: Patient is awake, alert but confused. VS T98.5 P67 R19 BP 118/62 Objective - Results Result Diagrams: 09/27/18 18:35 09/27/18 18:35 Recent Labs: Laboratory Last Values WBC 5.6 Th/cmm (4.8-10.8) 09/27/18 18:35 RBC 4.83 Mil/cmm (3.80-5.20) 09/27/18 18:35 Hgb 14.2 gm/dL (12-16) 09/27/18 18:35 Hct 42.8 % (41.0-60) 09/27/18 18:35 MCV 88.8 fl (81-100) 09/27/18 18:35 MCH 29.3 pg (27.0-31.0) 09/27/18 18:35 MCHC Differential 33.1 pg (28.0-36.0) 09/27/18 18:35 RDW 12.8 % (11.5-20.0) 09/27/18 18:35 Plt Count 212 Th/cmm (150-400) 09/27/18 18:35 MPV 8.7 fl 09/27/18 18:35 Neutrophils % 67.0 % (40.0-80.0) 09/27/18 18:35 Lymphocytes % 23.9 % (20.0-50.0) 09/27/18 18:35 Monocytes % 6.1 % (2.0-10.0) 09/27/18 18:35 Eosinophils % 2.1 % (0.0-5.0) 09/27/18 18:35 Basophils % 0.9 % (0.0-2.0) 09/27/18 18:35 Sodium 138 mEq/L (136-145) 09/27/18 18:35 Potassium 3.8 mEq/L (3.5-5.1) 09/27/18 18:35 Chloride 104 mEq/L (98-107) 09/27/18 18:35 Carbon Dioxide 24.7 mEq/L (21.0-31.0) 09/27/18 18:35 Anion Gap 13.1 (7.0-16.0) 09/27/18 18:35 BUN 17 mg/dL (7-25) 09/27/18 18:35 Creatinine 0.9 mg/dL (0.6-1.2) 09/27/18 18:35 Est GFR ( Amer) TNP 09/27/18 18:35 Est GFR (Non-Af Amer) TNP 09/27/18 18:35 BUN/Creatinine Ratio 18.9 09/27/18 18:35 Glucose 225 mg/dL (70-105) H 09/27/18 18:35 Calcium 9.7 mg/dL (8.6-10.3) 09/27/18 18:35 Phosphorus 3.3 mg/dL (2.5-5.0) 09/27/18 18:35 Magnesium 2.0 mg/dL (1.9-2.7) 09/27/18 18:35 Total Bilirubin 0.9 mg/dL (0.3-1.0) 09/27/18 18:35 AST 22 U/L (13-39) 09/27/18 18:35 ALT 15 U/L (7-52) 09/27/18 18:35 Alkaline Phosphatase 82 U/L (34-104) 09/27/18 18:35 Total Protein 6.4 gm/dL (6.0-8.3) 09/27/18 18:35 Albumin 3.9 gm/dL (3.7-5.3) 09/27/18 18:35 Globulin 2.5 gm/dL 09/27/18 18:35 Albumin/Globulin Ratio 1.6 (1.0-1.8) 09/27/18 18:35 Triglycerides 78 mg/dL (<150) 09/27/18 18:35 Cholesterol 166 mg/dL (<200) 09/27/18 18:35 LDL Cholesterol Direct 85 mg/dL (75-193) 09/27/18 18:35 HDL Cholesterol 72 mg/dL (23-92) 09/27/18 18:35 TSH 2.93 uIU/ml (0.34-5.60) 09/27/18 18:35 - Physical Exam Vitals and I&O: Vital Signs Temp 98.5 F 10/08/18 06:38 Pulse 67 10/08/18 06:38 Resp 19 10/08/18 06:38 BP 118/62 10/08/18 06:38 Pulse Ox 99 01/03/19 06:38 Intake & Output 10/07/18 10/08/18 10/08/18 18:59 06:59 18:59 Intake Total 1500 120 Balance 1500 120 Intake: Oral 1500 120 Other: # Voids 3 3 # Bowel Movements 0 Active Medications: Current Medications Acetaminophen (Tylenol) 650 mg PO Q4HR PRN PRN Reason: Mild Pain / Temp above 100 Stop: 11/26/18 22:47 Al Hydrox/Mg Hydrox/Simethicone (Maalox) 30 ml PO Q4HR PRN PRN Reason: GI DISTRESS Stop: 11/26/18 22:47 Aspirin (Ecotrin) 81 mg PO DAILY KINJAL Stop: 11/27/18 08:59 Last Admin: 10/08/18 08:00 Dose: Not Given Haloperidol (Haldol) 5 mg PO BID [facility]; Protocol Stop: 12/02/18 16:59 Last Admin: 10/08/18 08:00 Dose: Not Given Haloperidol Decanoate (Haldol Dec) 25 mg IM [id number] [facility]; Protocol Stop: 11/28/18 08:59 Last Admin: 09/29/18 08:36 Dose: 25 mg Levothyroxine Sodium (Synthroid) 0.05 mg PO QDAC KINJAL Stop: 11/27/18 07:29 Last Admin: 10/08/18 06:55 Dose: Not Given Lorazepam (Ativan) 0.5 mg PO Q4HR PRN; Protocol PRN Reason: Anxiety Stop: 10/27/18 22:47 Magnesium Hydroxide (Milk Of Magnesia) 30 ml PO HS PRN PRN Reason: Constipation Mirtazapine (Remeron) 15 mg PO HS [facility]; Protocol Stop: 11/27/18 20:59 Last Admin: 10/07/18 21:01 Dose: Not Given Oxcarbazepine (Trileptal) 150 mg PO BID [facility]; Protocol Stop: 11/27/18 08:59 Last Admin: 10/08/18 08:00 Dose: Not Given General: Alert, No acute distress HEENT: Atraumatic, PERRLA, EOMI Neck: Supple, no JVD Cardiovascular: Regular rate, Normal S1, Normal S2 Lungs: Clear to auscultation Abdomen: Bowel sounds Extremities: no Clubbing, no Cyanosis, no Edema Neurological: Normal gait Assessment/Plan - Problem List Patient Problems: All Active Problems DELUSIONAL THINKING AND POOR ORAL INTAKE (Acute) - Assessment Assessment: Current Active Problems Problem Status Onset DELUSIONAL THINKING AND POOR ORAL INTAKE Acute psychosis - Plan Plan: admit to ger[facility] continue current medications. Nutritional Asmnt/Malnutr-PDOC - Dietary Evaluation Malnutrition Findings (Please click <Entered> for more info): Nutritional Asmnt/Malnutrition Start: 09/28/18 15: 25 Text: Status: Complete Freq: Protocol: Document 09/28/18 15:25 LCHENG (Rec: 09/28/18 15:36 LCHENG [email or web address]) Nutritional Asmnt/Malnutrition Patient General Information Nutritional Screening High Risk Consult Diagnosis psychosis Pertinent Medical Hx/Surgical Hx CAD, CVA/TIA Subjective Information Consult received for elevated glucose at admission. Glucose 225 noted. Per nurse note, pt has been refusing meals for 2 days before admitted. Per [employer], pt ate well, 75% of meals. Current Diet Order/ Nutrition Support regular Pertinent Medications synthroid, remeron Pertinent Labs 09/27 glucose 225 Nutritional Hx/Data Height 1.68 m Height (Calculated Centimeters) 167.6 Current Weight (lbs) 46.266 kg Weight (Calculated Kilograms) 46.3 Weight (Calculated Grams) 47316.4 [place] Body Weight 130 Body Mass Index (BMI) 16.5 Weight Status Underweight GI Symptoms GI Symptoms None Last BM none noted Difficult in: None Skin Integrity/Comment: intact Current %PO Good (75-100%) Estimated Nutritional Goals BEE in Kcals: Using Current wt Calories/Kcals/Kg 30-35 Kcals Calculated 9389-0984 Protein: Using Current wt Protein g/k.2 Protein Calculated 55 Fluid: ml 1380-1610ml (1ml/kcal) Nutritional Problem 1. Problem Problem altered nutrition related labs Etiology hyperglycemia Signs/Symptoms: glucose 225 Intervention/Recommendation Comments 1. Continue with regular diet as ordered. If glucose continue elevated, consider adding CCHO 60gm diet restriction 2. Monitor PO intake, wt, labs and skin integrity 3. F/U as high risk in 2-3 days Expected Outcomes/Goals Expected Outcomes/Goals 1. PO intake to meet at least 75% of nutritional needs. 2. Wt stability, skin to remain intact, labs to approach WNL.
--- NOTE | 2018-10-08 20:47 | Progress Notes ---
DATE: 10/08/2018 SUBJECTIVE: Staff was spoken to. The patient is interviewed. Mood is noted to be less irritable. Affect is appropriate. Insight and judgment are improving. Impulse control seems to be fair. No side effects to the medications are noted. The patient has been closely monitored at this time. The patient is going to be given the Haldol, Decanoate one dose today and the patient possibly is going to be discharged tomorrow for followup on outpatient basis. The patient has psychosis, but not presenting with any threats to harm self or others at this time. JOB# [id number]
--- NOTE | 2018-10-09 05:46 | General Progress Note ---
Subjective - Review of Systems Service Date: 10/09/18 Subjective: Patient is awake, alert but confused. VS T97.9 P75 R20 BP 141/82 Objective - Results Result Diagrams: 09/27/18 18:35 09/27/18 18:35 Recent Labs: Laboratory Last Values WBC 5.6 Th/cmm (4.8-10.8) 09/27/18 18:35 RBC 4.83 Mil/cmm (3.80-5.20) 09/27/18 18:35 Hgb 14.2 gm/dL (12-16) 09/27/18 18:35 Hct 42.8 % (41.0-60) 09/27/18 18:35 MCV 88.8 fl (81-100) 09/27/18 18:35 MCH 29.3 pg (27.0-31.0) 09/27/18 18:35 MCHC Differential 33.1 pg (28.0-36.0) 09/27/18 18:35 RDW 12.8 % (11.5-20.0) 09/27/18 18:35 Plt Count 212 Th/cmm (150-400) 09/27/18 18:35 MPV 8.7 fl 09/27/18 18:35 Neutrophils % 67.0 % (40.0-80.0) 09/27/18 18:35 Lymphocytes % 23.9 % (20.0-50.0) 09/27/18 18:35 Monocytes % 6.1 % (2.0-10.0) 09/27/18 18:35 Eosinophils % 2.1 % (0.0-5.0) 09/27/18 18:35 Basophils % 0.9 % (0.0-2.0) 09/27/18 18:35 Sodium 138 mEq/L (136-145) 09/27/18 18:35 Potassium 3.8 mEq/L (3.5-5.1) 09/27/18 18:35 Chloride 104 mEq/L (98-107) 09/27/18 18:35 Carbon Dioxide 24.7 mEq/L (21.0-31.0) 09/27/18 18:35 Anion Gap 13.1 (7.0-16.0) 09/27/18 18:35 BUN 17 mg/dL (7-25) 09/27/18 18:35 Creatinine 0.9 mg/dL (0.6-1.2) 09/27/18 18:35 Est GFR ( Amer) TNP 09/27/18 18:35 Est GFR (Non-Af Amer) TNP 09/27/18 18:35 BUN/Creatinine Ratio 18.9 09/27/18 18:35 Glucose 225 mg/dL (70-105) H 09/27/18 18:35 Calcium 9.7 mg/dL (8.6-10.3) 09/27/18 18:35 Phosphorus 3.3 mg/dL (2.5-5.0) 09/27/18 18:35 Magnesium 2.0 mg/dL (1.9-2.7) 09/27/18 18:35 Total Bilirubin 0.9 mg/dL (0.3-1.0) 09/27/18 18:35 AST 22 U/L (13-39) 09/27/18 18:35 ALT 15 U/L (7-52) 09/27/18 18:35 Alkaline Phosphatase 82 U/L (34-104) 09/27/18 18:35 Total Protein 6.4 gm/dL (6.0-8.3) 09/27/18 18:35 Albumin 3.9 gm/dL (3.7-5.3) 09/27/18 18:35 Globulin 2.5 gm/dL 09/27/18 18:35 Albumin/Globulin Ratio 1.6 (1.0-1.8) 09/27/18 18:35 Triglycerides 78 mg/dL (<150) 09/27/18 18:35 Cholesterol 166 mg/dL (<200) 09/27/18 18:35 LDL Cholesterol Direct 85 mg/dL (75-193) 09/27/18 18:35 HDL Cholesterol 72 mg/dL (23-92) 09/27/18 18:35 TSH 2.93 uIU/ml (0.34-5.60) 09/27/18 18:35 - Physical Exam Vitals and I&O: Vital Signs Temp 97.9 F 10/08/18 20:00 Pulse 75 10/08/18 20:00 Resp 20 10/08/18 20:00 BP 141/82 10/08/18 20:00 Pulse Ox 100 10/08/18 20:00 Intake & Output 10/08/18 10/08/18 10/09/18 06:59 18:59 06:59 Intake Total 120 960 Balance 120 960 Intake: Oral 120 960 Other: # Voids 3 3 # Bowel Movements 0 Active Medications: Current Medications Acetaminophen (Tylenol) 650 mg PO Q4HR PRN PRN Reason: Mild Pain / Temp above 100 Stop: 11/26/18 22:47 Al Hydrox/Mg Hydrox/Simethicone (Maalox) 30 ml PO Q4HR PRN PRN Reason: GI DISTRESS Stop: 11/26/18 22:47 Aspirin (Ecotrin) 81 mg PO DAILY KINJAL Stop: 11/27/18 08:59 Last Admin: 10/08/18 08:00 Dose: Not Given Haloperidol (Haldol) 5 mg PO BID [facility]; Protocol Stop: 12/02/18 16:59 Last Admin: 10/08/18 08:00 Dose: Not Given Haloperidol Decanoate (Haldol Dec) 25 mg IM [id number] [facility]; Protocol Stop: 11/28/18 08:59 Last Admin: 09/29/18 08:36 Dose: 25 mg Levothyroxine Sodium (Synthroid) 0.05 mg PO QDAC KINJAL Stop: 11/27/18 07:29 Last Admin: 10/08/18 06:55 Dose: Not Given Lorazepam (Ativan) 0.5 mg PO Q4HR PRN; Protocol PRN Reason: Anxiety Stop: 10/27/18 22:47 Magnesium Hydroxide (Milk Of Magnesia) 30 ml PO HS PRN PRN Reason: Constipation Mirtazapine (Remeron) 15 mg PO HS [facility]; Protocol Stop: 11/27/18 20:59 Last Admin: 10/08/18 21:09 Dose: Not Given Oxcarbazepine (Trileptal) 150 mg PO BID [facility]; Protocol Stop: 11/27/18 08:59 Last Admin: 10/08/18 08:00 Dose: Not Given General: Alert, No acute distress HEENT: Atraumatic, PERRLA, EOMI Neck: Supple, no JVD Cardiovascular: Regular rate, Normal S1, Normal S2 Lungs: Clear to auscultation Abdomen: Bowel sounds Extremities: no Clubbing, no Cyanosis, no Edema Neurological: Normal gait Assessment/Plan - Problem List Patient Problems: All Active Problems DELUSIONAL THINKING AND POOR ORAL INTAKE (Acute) - Assessment Assessment: Current Active Problems Problem Status Onset DELUSIONAL THINKING AND POOR ORAL INTAKE Acute psychosis - Plan Plan: admit to ger[facility] continue current medications. Nutritional Asmnt/Malnutr-PDOC - Dietary Evaluation Malnutrition Findings (Please click <Entered> for more info): Nutritional Asmnt/Malnutrition Start: 09/28/18 15: 25 Text: Status: Complete Freq: Protocol: Document 09/28/18 15:25 LCHENG (Rec: 09/28/18 15:36 LCHENG [email or web address]) Nutritional Asmnt/Malnutrition Patient General Information Nutritional Screening High Risk Consult Diagnosis psychosis Pertinent Medical Hx/Surgical Hx CAD, CVA/TIA Subjective Information Consult received for elevated glucose at admission. Glucose 225 noted. Per nurse note, pt has been refusing meals for 2 days before admitted. Per [employer], pt ate well, 75% of meals. Current Diet Order/ Nutrition Support regular Pertinent Medications synthroid, remeron Pertinent Labs 09/27 glucose 225 Nutritional Hx/Data Height 1.68 m Height (Calculated Centimeters) 167.6 Current Weight (lbs) 46.266 kg Weight (Calculated Kilograms) 46.3 Weight (Calculated Grams) 54651.4 [place] Body Weight 130 Body Mass Index (BMI) 16.5 Weight Status Underweight GI Symptoms GI Symptoms None Last BM none noted Difficult in: None Skin Integrity/Comment: intact Current %PO Good (75-100%) Estimated Nutritional Goals BEE in Kcals: Using Current wt Calories/Kcals/Kg 30-35 Kcals Calculated 5443-4376 Protein: Using Current wt Protein g/k.2 Protein Calculated 55 Fluid: ml 1380-1610ml (1ml/kcal) Nutritional Problem 1. Problem Problem altered nutrition related labs Etiology hyperglycemia Signs/Symptoms: glucose 225 Intervention/Recommendation Comments 1. Continue with regular diet as ordered. If glucose continue elevated, consider adding CCHO 60gm diet restriction 2. Monitor PO intake, wt, labs and skin integrity 3. F/U as high risk in 2-3 days Expected Outcomes/Goals Expected Outcomes/Goals 1. PO intake to meet at least 75% of nutritional needs. 2. Wt stability, skin to remain intact, labs to approach WNL.
[2018-10-09] MEDS: Levothyroxine 0.05 Mg Tab PO SCH (06:44)
--- NOTE | 2018-10-09 12:36 | Progress Notes ---
DATE: 10/09/2018 SUBJECTIVE: Staff was spoken to. The patient is interviewed. Mood is noted to be irritable. Affect is constricted. Insight and judgment are noted to be still impaired. Impulse control seems to be fair. No side effects to the medications are noted. The patient has been able to verbalize the concerns rather than to act out. ASSESSMENT: The patient's psychosis is resolving. PLAN: To discharge the patient today for followup on outpatient basis. JOB# [id number]
== END 2018-10-09 16:45 | DRG 885 ==
LOC: ER 17:51 → GERO 19:35
DX: F20.0 Paranoid schizophrenia (principal); N39.0 Urinary tract infection, site not specified; E03.9 Hypothyroidism, unspecified; I25.10 Atherosclerotic heart disease of native coronary artery without angina pectoris; F29 Unspecified psychosis not due to a substance or known physiological condition; C44.01 Basal cell carcinoma of skin of lip; Z79.82 Long term (current) use of aspirin; Z86.73 Personal history of transient ischemic attack (TIA), and cerebral infarction without residual deficits
CPT/HCPCS: 36415-UA; 80053-TC; 80061-TC; 83036-90; 83735-TC; 84100-TC; 84443-TC; 85025-TC; G0410; J1631; J1885; Z7610